=== PATIENT | male | born 1930 | race Caucasian/White ===

== ENCOUNTER 2016-12-30 19:37 | Inpatient (IN) | payer MEDICARE, MEDICAID ==
[2016-12-30] MEDS ORDERED: EPINEPHrine 1 MG/10 ML Abboject SYRINGE ONE (19:43)
[2016-12-30] MEDS ORDERED: Sodium Bicarb 50 MEQ/50 ML Abboject 8.4% SYRINGE ONE (20:00)
[2016-12-30] MEDS ORDERED: Atropine Sulfate 1 mg/10 ml Syringe ONE (20:00)
[2016-12-30] MEDS ORDERED: Norepinephrine 8 MG/0.9% NS 250 ML ONE (20:08)
[2016-12-30] MEDS ORDERED: Fentanyl 20 MCG/ML 250 ML ONE (20:53)
[2016-12-30] MEDS ORDERED: Vasopressin 40 UNIT, Admixture Fee 1 EACH in Sodium Chloride 0.9% 100 ML IV SCH (21:00)
[2016-12-30] MEDS ORDERED: Propofol 1,000 MG/100 ML VIAL IV ONE (21:09)
[2016-12-30 21:28] LABS: Oxyhemoglobin 97.9 % (94.0-97.0); Sodium 142 mmol/L (135-148)
[2016-12-30 21:34] LABS: Mechanical Tidal Volume 550 ml; Mode SIMV; Vent YES
[2016-12-30 21:46] LABS: Bilirubin Small (Negative); Blood, Urine Negative (Negative); Glucose, Urine (Dipstick) Negative (Negative); Ketone, Urine Negative (Negative); Nitrite Negative (Negative); Protein, Urine (Dipstick) 100 mg/dL (Neg-Trace)
[2016-12-30 21:48] LABS: Bacteria/HPF None Seen HPF (None Seen); Squamous Epithelial 0-3 HPF (0-3)
[2016-12-30 21:50] LABS: Hyaline Casts/LPF 0-3 HYALINE CAST LPF (0-3 Hyaline); Yeast-All Forms None Seen HPF (None Seen)
[2016-12-30] MEDS ORDERED: Ondansetron HCl/PF 4 MG/2 ML Vial IVP PRN (21:55)
--- NOTE | 2016-12-30 21:55 | PDOC.EVN ---
Event Note - Event Note Event Note: [id number] H&p dictated 1. SBO 2. Lactic acidosis 3. Acute respiratory failure 4. Cardiac arrest 5. Anemia + R/O GI bleed plan; see orders
[2016-12-30] MEDS ORDERED: Meropenem 2 GM in Admixture Fee 1 EACH IVPB SCH (22:00)
--- NOTE | 2016-12-30 22:11 | CON ---
DATE OF CONSULTATION: 12/30/2016 CHIEF COMPLAINT: Abdominal pain. HISTORY OF PRESENT ILLNESS: The patient is an 86-year-old male, who is a patient in a long term with a diagnosis of dementia, who began having abdominal pain over the last few days and was taken t o the emergency room in [place]. There he was hypotensive and which became exacerbated with treatmen t with pain medicine with narcotics. PAST MEDICAL HISTORY: Significant for hypertension, chronic constipation, benign prostatic hypertro phy, pressure ulcers, hypothyroidism. PAST SURGICAL HISTORY: Evidently he had a carpal tunnel surgery recently. MEDICATIONS: Include acetaminophen, guaifenesin, amlodipine, tramadol, Detrol, Imodium, metoprolol, levothyroxine, Flomax, Tums. ALLERGIES: No known drug allergies. SOCIAL HISTORY: Lives in a long term. We have tried 6 different phone numbers, cannot find any next of kin. No next of kin. Apparently, he has been DO NOT RESUSCITATE, DO NOT INTUBATE, that was reported prior to transfer here from [place]. PHYSICAL EXAMINATION: VITAL SIGNS: He is afebrile. His pulse is 80, his blood pressure is 60/20, on Levophed. GENERAL: I cannot get any response from him, he is totally unresponsive. HEENT: His pupils are 3 mm, he appears pale. LUNGS: Clear. HEART: Regular rate and rhythm. ABDOMEN: Very distended, tympanic. No palpable masses. EXTREMITIES: He has got an ulcer on his right foot, poor pulses. DIAGNOSTIC DATA: He had a CT scan done at [place]. I have talked to the radiologist here, there is no free air. There may be some early pneumatosis, but no free air at this time, but massively dilat ed small bowel. ASSESSMENT: Small-bowel obstruction with hypertension, poor surgical candidate. PLAN: NG suction, IV hydration, medical admission.
[2016-12-30] MEDS ORDERED: Sedation Protocol FS ONE (22:20)
[2016-12-30] MEDS ORDERED: CCU Electrolyte Replacement 1 EACH FS ONE (22:20)
[2016-12-30] MEDS ORDERED: Acetaminophen 650 MG in Premix Bag 1 BAG IVPB PRN (22:22)
[2016-12-30] MEDS ORDERED: Meropenem 1 GM in Sodium Chloride 0.9% 100 ML IVPB SCH (22:30)
--- NOTE | 2016-12-30 22:37 | RAD ---
EXAM: ONE VIEW CHEST 12/30/16 HISTORY: Bowel obstruction. Previous NG tube placement. COMPARISON: 12/30/16. FINDINGS: There is elevation of the left hemidiaphragm suggesting atelectasis. Superimposed air space disease cannot be excluded. Stable aeration of the right lung. There is no pneumothorax. Stable cardiac silh ouette. Interval removal of nasogastric tube. Multiple dilated loop of small bowel are identified. IMPRESSION: 1. Interval removal of nasogastric tube. 2. Elevation of the left hemidiaphragm and atelectasis. Superimposed pneumonia cannot be exclud ed. POS: [facility]
--- NOTE | 2016-12-30 22:38 | RAD ---
EXAM: ABDOMEN ONE VIEW 12/30/16 COMPARISON: None. CORRELATION: CT abdomen and pelvis 12/30/16. FINDINGS: Markedly distended loops of small bowel are redemonstrated. No obvious pneumoperitoneum on this supi ne projection. Right sided femoral central venous catheter is noted. IMPRESSION: Small bowel obstruction. POS: [facility]
[2016-12-30] MEDS ORDERED: DISCONTINUE PREVIOUS NARCOTIC PAIN MEDICATIONS AND BENZODIAZEPINES FS SCH (22:42)
[2016-12-30] MEDS ORDERED: Lorazepam 2 MG/ML VIAL SLOW IVP PRN (22:42)
[2016-12-30] MEDS ORDERED: Morphine Sulfate 2 MG/ML SYRINGE SLOW IVP PRN (22:42)
[2016-12-30] MEDS ORDERED: Potassium Phosphate 9 MMOL in Sodium Chloride 0.9% 100 ML IVPB PRN (22:44)
[2016-12-30] MEDS ORDERED: Potassium Chloride 20 MEQ TAB PO PRN (22:44)
[2016-12-30] MEDS ORDERED: Magnesium Oxide 400 MG TAB PO PRN ×2 (22:44)
[2016-12-30] MEDS ORDERED: CCU ELECTROLYTE REPLACEMENT PROTOCOL FS PRN (22:44)
[2016-12-30] MEDS ORDERED: Potassium Phosphate 12 MMOL in Sodium Chloride 0.9% 250 ML 250 ML IV PRN (22:44)
[2016-12-30] MEDS ORDERED: Potassium Chloride 40 MEQ in Sodium Chloride 0.9% 250 ML 250 ML IVPB PRN (22:44)
[2016-12-30] MEDS ORDERED: Potassium Phosphate 15 MMOL in Sodium Chloride 0.9% 250 ML 250 ML IV PRN (22:44)
--- NOTE | 2016-12-30 22:45 | RAD ---
EXAM: ONE VIEW CHEST 12/30/16 HISTORY: Intubation. COMPARISON: 12/30/16 at 7:31 p.m. FINDINGS: Portable supine chest: Endotracheal tube at the level of the clavicles. Nasogastric tube at the level distal thoracic esoph enmanuel. Persistent opacification of the left lung base with elevation of the left hemidiaphragm sugges ting atelectasis. Stable aeration of the right lung. No pneumothorax. IMPRESSION: Interval placement of endotracheal and nasogastric tube. Advancement of the nasogastric tube is yash mmended. Results of the study discussed with Dr. Recinos, 12/30/16 at 9:36 p.m. Code CR POS: [facility]
[2016-12-30 22:52] LABS: Hematocrit 23.9 % (42.0-52.0)
--- NOTE | 2016-12-30 23:05 | RAD ---
EXAM: ABDOMEN ONE VIEW 12/30/16 HISTORY: NG tube placement. FINDINGS: One view abdomen: Nasogastric tube is still at the level of the distal thoracic esophagus. Multiple distended loops of small bowel are noted. Contrast is identified in the left intra and extrarenal collecting system. IMPRESSION: 1. Small bowel obstruction. 2. Nasogastric tube as above. POS: [facility]
[2016-12-31] MEDS: Sodium Chloride 0.9% 1,000 ML IV SCH ×4 (00:09→21:02)
[2016-12-31] MEDS: metroNIDAZOLE 500 MG in Premix Bag 1 BAG IVPB SCH ×4 (00:09→22:49)
[2016-12-31] MEDS: Hydrocortisone Sod Succ/PF 100 mg/2 ml Vial IVP SCH ×5 (00:12→23:42)
[2016-12-31] MEDS: Pantoprazole 80 MG in Sodium Chloride 0.9% 100 ML IVP SCH ×3 (00:15→18:21)
--- NOTE | 2016-12-31 01:50 | CON ---
DATE OF CONSULTATION: 12/30/2016 CONSULTING PHYSICIAN: Yared Hernandez M.D., from the [facility]. REASON FOR CONSULTATION: Critical care management. HISTORY OF PRESENT ILLNESS: The patient is an 86-year-old male who apparently lives in a nursing [facility]. He presented to the [facility] ER earlier today with vomiting and abdominal pain. He li ves in a intermediate, so the history is somewhat sketchy. From what I understand, he was given Dil audid and fentanyl for his abdominal pain and subsequently required reversal with Narcan. He develo ped some hypotension. He was found to have small-bowel obstruction on CT scan. Initially, it was s uspected that he might have a perforated viscous, but it seems to have been ruled out by Radiology a nd General Surgery. In any event, he was transported over here and the patient decompensated in ter ms of hypotension and eventually had a short cardiopulmonary arrest. He required endotracheal intub ation and was placed on vasopressors. PAST MEDICAL HISTORY: 1. Depression. 2. Chronic atrial fibrillation. 3. Lower extremity venous insufficiency. 4. Osteoarthritis. 5. Benign prostatic hypertrophy. 6. Sick sinus syndrome. 7. Colon polypectomy. 8. Anemia. 9. Hypothyroidism. 10. Dementia. PAST SURGICAL HISTORY: Colonoscopies and EGDs. MEDICATIONS PRIOR TO ADMISSION: Amlodipine 5 mg daily, tramadol 50 mg every 4 hours as needed, Detr ol 2 mg 2 times daily, Imodium 2 mg p.r.n., multivitamin 1 daily, metoprolol 25 mg once daily, levot hyroxine 75 mcg daily, Flomax 0.4 mg 2 tablets once daily, Tums 200 mg every 6 hours as needed, guai fenesin 2 teaspoons every 6 hours as needed and acetaminophen 325 mg every 4 hours as needed. ALLERGIES: ALLOPURINOL, NAPROSYN, PENICILLIN, PENTOXIFYLLINE and SULFA. SOCIAL HISTORY: Lives in a intermediate. Formerly drank 2-4 beers 2-4 days per week. Unclear on h is smoking history at the time of this dictation. FAMILY MEDICAL HISTORY: Father of an IN. Mother of old age. Has a history of breast can cer in the family and also diabetes mellitus. REVIEW OF SYSTEMS: Unobtainable as the patient is intubated on mechanical ventilation. PHYSICAL EXAMINATION: VITAL SIGNS: Temperature is 93.7, pulse 114, blood pressure 144/54, O2 sat 100% and respiratory rat e 25. At the time of this dictation, he was on Levophed at 15 mcg/minute and vasopressin 0.04 units /minute. HEENT: His pupils sluggishly react. Sclerae are anicteric. Oropharynx, endotracheal tube and orog astric tube in place. NECK: Without adenopathy. LUNGS: He has profound external jugular vein secondary to the severe muscle atrophy. No thyromegal y. CARDIAC: S1 and S2, irregularly irregular. No murmur. LUNGS: Clear without wheezing or rhonchi. ABDOMEN: Distended and tympanic with hypoactive bowel sounds. EXTREMITIES: Without clubbing or cyanosis. He has stasis ulcer on his left heel. LABORATORY DATA: White blood cell count 5.8, hemoglobin 9, hematocrit 28.3 and platelet count 260. PH of 7.19, pCO2 of 48, pO2 of 292 and that was on SIMV rate 16, tidal volume 550, PEEP 5, pressure support 10 and FiO2 100%. Sodium 140, potassium 4.3, chloride 102, CO2 of 24, BUN 85, creatinine 1 .2, glucose 166, lactate 5.3 and calcium 8.7. Cardiac enzymes are pending. Urinalysis demonstrated 4-6 white blood cells per high power field. He has proteinuria. IMAGING DATA: Chest x-ray demonstrates some atelectasis at the left base. He has an endotracheal t ube in. There is now an orogastric tube in place. KUB shows profound bowel loops with distention. ASSESSMENT: 1. Small-bowel obstruction. 2. Cardiopulmonary decompensation secondary to narcotic medication administration with subsequent h ypotension, which is now corrected. 3. History of dementia. 4. History of hypothyroidism. 5. History of hypertension. 6. Advanced age. RECOMMENDATIONS: 1. I would recommend supporting the patient with mechanical ventilation. Wean off vasopressor as t olerated. 2. Empiric antibiotics. 3. Pantoprazole for GI prophylaxis. 4. Hydration with IV fluids. 5. Check an echocardiogram in the morning. 6. Get in touch with family and code status is his prognosis is very poor.
[2016-12-31] MEDS: Propofol 1,000 MG/100 ML VIAL IV PRN ×2 (04:50→17:37)
[2016-12-31] MEDS: Levothyroxine Sodium 100 MCG VIAL IVP SCH (05:46)
[2016-12-31 06:24] LABS: #Lymphocytes 0.5 thou/uL (1.20-3.40); #Monocytes 0.5 thou/uL (0.11-0.59); #Neutrophils 2.9 thou/uL (1.40-6.50); %Eosinophils 0.2 % (0.0-10.0); %Lymphocytes 13.3 % (21.0-51.0); %Monocytes 12.5 % (0.0-10.0); Hematocrit 22.7 % (42.0-52.0); Mean Platelet Volume 7.4 fL (7.4-10.4); Red Blood Cell (RBC) Count 2.29 mill/uL (4.70-6.10)
[2016-12-31 06:43] LABS: Anion Gap 18 mmol/L (10-20); BUN (Urea Nitrogen) 26 mg/dL (8.4-25.7); BUN/Creatinine Ratio 21.31; Calc. Creatinine Clearance 48 mL/min (70-130); Calcium 7.7 mg/dL (7.8-10.44); Carbon Dioxide 21 mmol/L (23-31); Chloride 107 mmol/L (98-107); Estimated GFR-MDRD 56; Phosphorus 4.6 mg/dL (2.3-4.7)
[2016-12-31 07:09] LABS: Oxyhemoglobin 97.1 % (94.0-97.0); Sodium 140 mmol/L (135-148)
[2016-12-31 07:10] LABS: Mechanical Tidal Volume 550 ml; Modified Allen's Test POSITIVE; Pressure Support 10 cmH2O; Vent YES
--- NOTE | 2016-12-31 08:00 | HP ---
DATE OF ADMISSION: 12/30/2016 CHIEF COMPLAINT: Abdominal pain. HISTORY OF PRESENT ILLNESS: The patient is 86 years old male who [place], initially went to outside ER because of abdominal pain. In the outside ER, the patient was complaining of abdominal pain. The patient had x- ray done, which showed some possible perforated viscus. The patient was given Dilaudid in the outside ER, following Dilaudid patient became apneic, so patient was given Narcan and patient was improved, so patient was given fentanyl and transferred here. Upon our ER arrival, the patient was lethargic. The patient had repeat x-ray done, which showed small-bowel obstruction, but patient was hypotensive, so patient was started on vasopressors. The patient was seen by General Surgery in the ER, recommended no surgical intervention at this time. While in the ER, the patient became hypotensive and bradycardic and lost pulse, so patient had CPR done for 2 minutes and then restarted dose of epinephrine also. Following that the patient's heart rate improved, the patient was placed on 2 pressors. The patient was intubated during cardiac arrest and patient is currently on the ventilatory support, so no history available from the patient. The patient did had an NG tube placed and patient had black vomit following that NG tube placement. The patient is currently on the ventilator support. PAST MEDICAL HISTORY: Per records, positive for atrial fibrillation, pulmonary hypertension, BPH, depression, and venous insufficiency. PAST SURGICAL HISTORY: None available as the patient is currently on the ventilator support. SOCIAL HISTORY: No smoking, no alcohol, no drugs. FAMILY HISTORY: No family members available at this time. MEDICATIONS: Reviewed. REVIEW OF SYSTEMS: None unavailable as the patient is currently on the ventilator support. PHYSICAL EXAMINATION: CONSTITUTIONAL/VITAL SIGNS: At the time of H and P performed, blood pressure is 102/58, pulse 110, respiratory rate on vent support in the 20s, pulse ox 100 % on vent support. GENERAL APPEARANCE: This patient is sedated and intubated. Anterior nares patent. Oral cavity: Poor dentition. Positive for ET tube. NECK: Supple, no JVD. CARDIOVASCULAR SYSTEM: S1, S2 present, tachycardic. No murmurs, no rubs, no gallops. RESPIRATORY SYSTEM: Diminished breath sounds present bilaterally. Positive for rhonchi. Positive for crackles. GASTROINTESTINAL: Abdomen distended, hypoactive bowel sounds. No guarding, no organomegaly. MUSCULOSKELETAL: No edema. CRANIAL NERVE SYSTEM: Sedated and intubated and not following any commands. PSYCHIATRIC: Mood calm. LABORATORY DATA: At the time of H and P performed, white count 5.8, hemoglobin 9, platelet count 260. Lactic acid 5.3. Sodium 140, potassium 4.3, chloride 102, CO2 of 24, BUN 20, creatinine 1.19. BNP 134. Serum total protein 6.8, albumin 3.4. ASSESSMENT AND PLAN: The patient is 86 years old male. 1. Small-bowel obstruction. The patient was seen by Surgery. We will go ahead and management per Surgery. Need to keep patient n.p.o., start the patient on broad spectrum antibiotics. Plan to admit the patient to the ICU for close monitoring. 2. Acute respiratory failure plus status post cardiac arrest. Plan to continue vent support. Plan to check ABG. Plan to consult Pulmonary Critical Care to manage the patient. Plan to monitor the patient closely. Plan to continue vasopressors. Plan to check 2D echo to evaluate left ventricular function and we will consult Cardiology also to evaluate the patient. 3. Lactic acidosis might be due to hypotension or might be due to sepsis also. We will monitor CBC and lactate levels. Continue broad spectrum antibiotics. 4. Anemia. Monitor hemoglobin closely. No need for transfusion. We will transfuse if needed. 5. Hypotension. Continue vasopressor, we will try to keep map greater than 60. We will start patient on IV fluids also. 6. Rule out gastrointestinal bleed. The patient's NG tube showed significant black vomit seen, so we will start patient on Protonix drip also. We will monitor the patient closely. We will do H and H q.6 hours. The case was discussed in detail with the patient and ED physician. ED physician agreed to notify the ICU attending now. We will monitor the patient closely. d/w pt great grand nephew at bedside and updated patient critical condition MTDD
--- NOTE | 2016-12-31 08:08 | PRG ---
DATE OF SERVICE: 12/31/2016 Thirty-five minutes critical care time. SUBJECTIVE: Mr. Esquivel remains intubated and on mechanical ventilation. He was weaned off vasopr essors last night. He withdraws to pain, but does not follow any commands. He is currently on a li ght dose of propofol. PHYSICAL EXAMINATION: VITAL SIGNS: Temperature 96.9, pulse 96, blood pressure 106/64. A 24-hour intake 893, output 235. HEENT: Severe bitemporal wasting. NECK: Prominent external jugular veins. LUNGS: Clear but distant breath sounds. CARDIOVASCULAR: S1 and S2, irregularly irregular. ABDOMEN: Distended and tympanic. EXTREMITIES: Severe muscle wasting. LABORATORY DATA: White blood cell count 4, hemoglobin 7.3, hematocrit 22.7, platelet count 188, pH 7.53, pCO2 of 22, PO2 of 107 on SIMV rate 24, tidal volume 550, PEEP 5, pressure support 10, FiO2 40 %. Sodium 142, potassium 4.4, chloride 107, CO2 21, BUN 26, creatinine 1.2, glucose 131. Lactate 6 .7. ASSESSMENT: 1. Acute respiratory failure after administration of Dilaudid by outlying ER. 2. Small-bowel obstruction. 3. Some type of stricture at the esophageal or gastric junction which is preventing NG tube from be ing passed. 4. Dementia. 5. History of hypothyroidism. 6. History of hypertension. 7. History of chronic atrial fibrillation. PLAN: 1. He is not weanable yet secondary to his mental status. I would be very pessimistic of his recov belkys. 2. Continue antibiotics. 3. Check CT head to rule out stroke. 4. Adjust ventilator parameters. 5. Continue antibiotics.
[2016-12-31] MEDS: Meropenem 1 GM in Sodium Chloride 0.9% 100 ML IVPB SCH ×3 (08:30→23:42)
--- NOTE | 2016-12-31 12:23 | PDOC.PN ---
- Subjective Encounter Start Date: 12/31/16 Encounter Start Time: 12:21 Subjective: remains intubated and sedated - Objective MAR Reviewed: Yes Vital Signs & Weight: Vital Signs (12 hours) Temp Pulse Resp BP 12/31/16 10:52 108 H 106/67 12/31/16 10:00 97.5 F L 12/31/16 07:00 97.5 F L 12/31/16 06:31 105 H 111/67 12/31/16 06:00 24 H 12/31/16 04:00 96.9 F L 24 H 12/31/16 02:00 97.5 F L 24 H Weight Admit Weight 168 lb 14.4 oz Weight 169 lb 8.56 oz Most Recent Monitor Data Heart Rate from ECG 115 NIBP 112/59 NIBP BP-Mean 91 Respiration from ECG 24 SpO2 100 I&O: 12/30/16 12/31/16 01/01/17 06:59 06:59 06:59 Intake Total 943.0 Output Total 245 40 Balance 698.0 -40 Result Diagrams: 12/31/16 06:15 12/31/16 06:15 Additional Labs: Microbiology 12/30/16 22:30 Central Line - Right Common Femoral Vein Blood Culture - Preliminary Specimen has been received and culture in progress. No Growth to date. 12/30/16 19:55 Venous blood - Right Arm Blood Culture - Preliminary Specimen has been received and culture in progress. No Growth to date. Laboratory Tests 12/31/16 12/31/16 00:06 06:15 Lactic Acid 7.9 H* 6.7 H* Phys Exam - Physical Examination Constitutional: NAD cachectic w severe muscle wasting HEENT: PERRLA, sclera anicteric, oral pharynx no lesions dry mucosa Neck: no JVD Respiratory: no wheezing, no rales, no rhonchi Cardiovascular: RRR, no significant murmur Gastrointestinal: soft, non-tender, no distention, positive bowel sounds Musculoskeletal: no edema, pulses present b/l leg w erythema,brusing,warmth,stress ulcers sedated Deviation from normal: sedated Dx/Plan (1) Acute respiratory failure Code(s): J96.00 - ACUTE RESPIRATORY FAILURE, UNSP W HYPOXIA OR HYPERCAPNIA Status: Acute (2) Cardiac arrest Code(s): I46.9 - CARDIAC ARREST, CAUSE UNSPECIFIED Status: Acute (3) SBO (small bowel obstruction) Code(s): K56.69 - OTHER INTESTINAL OBSTRUCTION Status: Acute (4) Lactic acid acidosis Code(s): E87.2 - ACIDOSIS Status: Acute Comment: likley due to Hypoperfusion during CPR.Sepsis also can not be ruled out (5) Shock Code(s): R57.9 - SHOCK, UNSPECIFIED Status: Acute Comment: Septic Vs cardiogenic. On IV steroids and Pressor support (6) Sepsis Code(s): A41.9 - SEPSIS, UNSPECIFIED ORGANISM Status: Suspected (7) Anemia Code(s): D64.9 - ANEMIA, UNSPECIFIED Status: Chronic Qualifiers: Anemia type: unspecified type Qualified Code(s): D64.9 - Anemia, unspecified (8) Chronic a-fib Code(s): I48.2 - CHRONIC ATRIAL FIBRILLATION Status: Chronic (9) Malnutrition Code(s): E46 - UNSPECIFIED PROTEIN-CALORIE MALNUTRITION Status: Chronic Qualifiers: Malnutrition type: unspecified type Qualified Code(s): E46 - Unspecified protein-calorie malnutrition - Plan tong catheter, continue antibiotics, social media job titles, incentive spirometry, DVT proph w/SCDs ? bowel perforation.Inability to pass NGT.discussed w GI.not a candidate -: will consult PCT for hospice care .no immediate next of kin -: cont empiric ABx.IVf for now,PCCM following -: Vent support w sedation.not weanable. -: poor prognosis.am labs * . Review of Systems - Review of Systems Other: unobtainable due to obtunded,intubated and sedated state - Medications/Allergies Allergies/Adverse Reactions: Allergies Allergy/AdvReac Type Severity Reaction Status Date / Time allopurinol Allergy Verified 10/20/16 09:47 naproxen Allergy Verified 10/20/16 09:47 Penicillins Allergy Verified 10/20/16 09:47 pentoxifylline [From [place]al] Allergy Verified 10/20/16 09:47 Sulfa (Sulfonamide Allergy Verified 10/20/16 09:47 Antibiotics) Medications: Current Medications Hydrocortisone Sodium Succinate (Solu-Cortef) 50 mg IVP Q6HR JORGE L Stop: 01/06/17 18:01 Last Admin: 12/31/16 11:50 Dose: 50 mg Vasopressin 40 unit/Miscellaneous Medication 1 each/ Sodium Chloride 102 mls @ 0 mls/hr IV INF JORGE L; As Directed PRN Reason: Protocol Sodium Chloride (Normal Saline 0.9%) 1,000 mls @ 100 mls/hr IV .Q10H JORGE L Last Admin: 12/31/16 08:33 Dose: 1,000 mls Pantoprazole Sodium 80 mg/ (Sodium Chloride) 100 mls @ 10 mls/hr IVP INF JORGE L Last Admin: 12/31/16 08:56 Dose: 100 mls Metronidazole 500 mg/ Device 100 mls @ 100 mls/hr IVPB 0700,1500,2300 JORGE L Last Admin: 12/31/16 08:29 Dose: 100 mls Acetaminophen 650 mg/ Device 65 mls @ 400 mls/hr IVPB Q6H PRN PRN Reason: Fever > 101 Stop: 12/31/16 22:23 Ascorbic Acid 1,500 mg/ Sodium (Chloride) 53 mls @ 100 mls/hr IVPB Q6HR JORGE L Stop: 01/03/17 18:32 Last Admin: 12/31/16 11:53 Dose: 53 mls Norepinephrine Bitartrate (Levophed) 250 mls @ 0 mls/hr IVPB INF JORGE L; Titrate PRN Reason: Protocol Thiamine HCl 200 mg/ Sodium (Chloride) 52 mls @ 100 mls/hr IVPB Q12HR [facility] Stop: 01/03/17 21:32 Last Admin: 12/31/16 08:29 Dose: 52 mls Fentanyl (Fentanyl Cadd) 250 mls @ 0 mls/hr IVPB INF JORGE L; Titrate PRN Reason: Protocol Stop: 01/29/17 22:42 Fentanyl Citrate (Fentanyl Bolus) 250 mls @ 0 mls/hr IVPB PRN PRN; As Directed PRN Reason: VENTILATION SEDATION PROTOCOL Stop: 01/29/17 22:42 Potassium Chloride 40 meq/ (Sodium Chloride) 270 mls @ 135 mls/hr IVPB ASDIR PRN PRN Reason: FOR SERUM K+ 2.5 - 3.5 Potassium Chloride 40 meq/ (Device) 100 mls @ 50 mls/hr IVPB ASDIR PRN PRN Reason: FOR SERUM K+ 2.5 - 3.5 Magnesium Sulfate 1 gm/ Sodium (Chloride) 102 mls @ 102 mls/hr IV PRN PRN PRN Reason: MAG LEVEL 1.4 - 2.0 Magnesium Sulfate 2 gm/ Device 100 mls @ 100 mls/hr IVPB ASDIR PRN PRN Reason: MAGNESIUM < 1.4 Potassium Phosphate 9 mmol/ (Sodium Chloride) 103 mls @ 25.75 mls/hr IVPB ASDIR PRN PRN Reason: Phosphate 1.0-1.8 Potassium Phosphate 12 mmol/ (Sodium Chloride) 254 mls @ 63.5 mls/hr IV ASDIR PRN PRN Reason: Serum phosphate 0.5-0.9 Potassium Phosphate 15 mmol/ (Sodium Chloride) 255 mls @ 63.75 mls/hr IV ASDIR PRN PRN Reason: Serum Phos < 0.5 Meropenem 1 gm/ Sodium (Chloride) 100 mls @ 200 mls/hr IVPB 0800,1600,2359 [facility] Last Admin: 12/31/16 08:30 Dose: 100 mls Levothyroxine Sodium (Synthroid) 37.5 mcg IVP 0600 [facility] Last Admin: 12/31/16 05:46 Dose: Not Given Lorazepam (Ativan) 2 mg SLOW IVP Q2H PRN PRN Reason: Anxiety to achieve [place] 2-3 Stop: 01/29/17 22:42 Magnesium Oxide (Magnesium Oxide) 400 mg PO BIDPRN PRN PRN Reason: FOR SERUM MAG 1.4 - 2.0 Magnesium Oxide (Magnesium Oxide) 800 mg PO PRN PRN PRN Reason: FOR SERUM MAG < 1.4 Miscellaneous Medication (Phos-Nak) 1 pkt PO TIDPRN PRN PRN Reason: FOR PHOS LEVEL 1.0 - 1.8 Miscellaneous Medication (Phos-Nak) 2 pkt PO TIDPRN PRN PRN Reason: FOR PHOS LEVEL 0.5 - 1.0 Morphine Sulfate (Morphine Sulfate) 2 mg SLOW IVP Q2H PRN PRN Reason: PAIN TO ACHIEVE DAUGHERTY OF 2-3 Stop: 01/29/17 22:42 Discontinue Previous Narcotic Pain Medications And Benzodiazepines 1 each FS .ONE [facility] Stop: 01/29/17 22:42 Ccu Electrolyte (Replacement Protocol) 0 each FS PRN PRN PRN Reason: FOR ELECTROLYTE REPLACEMENT Ondansetron HCl (Zofran) 4 mg IVP Q6H PRN PRN Reason: Nausea/Vomiting Potassium Chloride (K-Dur) 40 meq PO ASDIR PRN PRN Reason: FOR SERUM K+ 2.5 - 3.5 Potassium Chloride (Klor-Con) 40 meq PER TUBE ASDIR PRN PRN Reason: FOR SERUM K+ 2.5-3.5 Propofol (Diprivan) 1,000 mg IV INF PRN; Protocol PRN Reason: TO ACHIEVE DAUGHERTY SCORE 2-3 Stop: 01/29/17 22:42 Last Admin: 12/31/16 04:50 Dose: 1,000 mg
--- NOTE | 2016-12-31 14:05 | CON ---
DATE OF CONSULTATION: 12/31/2016 HISTORY OF PRESENT ILLNESS: The patient is an 86-year-old demented custodial patient who was tra nsferred from a hospital in [facility]. He came in with abdominal pain and appeared to have a sm all-bowel obstruction. He was given some Dilaudid and became apneic. He was given Narcan and respo nded. He was noted to be hypotensive, he was started on vasopressors. General Surgery was saw him and at that time they said he was not a surgical candidate. He became bradycardiac and CPR was perf ormed and the patient was intubated. Patient had an NG place, but it was difficult for the NG to be passed beyond the thoracic esophagus. He adds nothing to history of present illness. PAST MEDICAL HISTORY: Includes atrial fibrillation, pulmonary hypertension, BPH, depression, venous insufficiency, dementia. PAST SURGICAL HISTORY: Unknown. SOCIAL HISTORY, FAMILY HISTORY, AND REVIEW OF SYSTEMS: Unobtainable. HOME MEDICATIONS: Include tramadol 50 mg p.o. q.4 hours p.r.n., Detrol 2 mg p.o. b.i.d., tamsulosin 0.4 mg p.o. at bedtime, multivitamin 1 p.o. q. day, Toprol-XL 25 mg p.o.q. day, loperamide 2 mg p.o . as directed p.r.n., levothyroxine 75 mcg p.o. q. day, amlodipine 5 mg p.o. q. day. ALLERGIES: Includes ALLOPURINOL, NAPROXEN, PENICILLIN, TRENTAL, and SULFA. PHYSICAL EXAMINATION: GENERAL: Shows ill-appearing, cachectic white man on the ventilator. VITAL SIGNS: Pulse is 113, respiratory rate 15, blood pressure 108/62. HEENT: Significant for an orotracheal tube in place. He is edentulous. NECK: Supple. CHEST: Clear. CARDIOVASCULAR: Regular rate and rhythm. ABDOMEN: Distended, tight, tympanitic diffusely. Bowel sounds are absent. RECTAL: Deferred. EXTREMITIES: Normal. LABORATORY DATA AND X-RAY FINDINGS: Shows a white blood cell count of 4.0, hemoglobin 7.3, hematocr it 22.7, MCV of 99.3. Chemistries significant for BUN 26, glucose 131. Lactic acid 67, calcium 7.7 , albumin 29. Abdominal x-rays from yesterday show a small-bowel obstruction. ASSESSMENT: 1. Small-bowel obstruction - the patient is not a surgical candidate. According to the CT report david Milton, the patient had pneumatosis in his bowel wall. Considering, he is not a surgical candid ate, is demented in the custodial. I think any further intervention would be not in the patient' s best interest. 2. Dementia. 3. Atrial fibrillation. RECOMMENDATION: Hospice care.
[2017-01-01] MEDS: Norepinephrine 8 MG/0.9% NS 250 ML IVPB SCH ×3 (02:01→17:51)
[2017-01-01 05:07] LABS: Band 44 % (5-11); Dohle Bodies SLIGHT; Hematocrit 18.5 % (42.0-52.0); Hypochromia SLIGHT = 6-15 cells (100X) (0-5/hpf); Macrocytosis SLIGHT = 6-15 cells (100X) (0-5/hpf); Mean Platelet Volume 7.9 fL (7.4-10.4); Metamyelocyte 2 % (0-0); Neutrophil 42 % (42-75); Red Blood Cell (RBC) Count 1.85 mill/uL (4.70-6.10); White Blood Cell (WBC) Count 5.5 thou/uL (4.8-10.8)
[2017-01-01] MEDS: Hydrocortisone Sod Succ/PF 100 mg/2 ml Vial IVP SCH ×4 (05:27→23:34)
[2017-01-01] MEDS: Levothyroxine Sodium 100 MCG VIAL IVP SCH (05:28)
[2017-01-01 06:00] LABS: Anion Gap 19 mmol/L (10-20); BUN (Urea Nitrogen) 48 mg/dL (8.4-25.7); Calc. Creatinine Clearance 27 mL/min (70-130); Calcium 7.3 mg/dL (7.8-10.44); Carbon Dioxide 19 mmol/L (23-31); Chloride 109 mmol/L (98-107); Estimated GFR-MDRD 27
[2017-01-01] MEDS: metroNIDAZOLE 500 MG in Premix Bag 1 BAG IVPB SCH ×3 (06:36→23:33)
[2017-01-01 07:27] LABS: Oxyhemoglobin 95.6 % (94.0-97.0); Sodium 140 mmol/L (135-148)
[2017-01-01 07:28] LABS: Mechanical Tidal Volume 500 ml; Mode SIMV.PSV; Modified Allen's Test NOT DONE; Pressure Support 10 cmH2O; Vent YES
[2017-01-01] MEDS: Meropenem 1 GM in Sodium Chloride 0.9% 100 ML IVPB SCH ×3 (08:29→23:33)
[2017-01-01] MEDS: Propofol 1,000 MG/100 ML VIAL IV PRN ×2 (08:34→23:34)
--- NOTE | 2017-01-01 10:10 | RAD ---
RADIOGRAPH CHEST 1 VIEW: Date: 01/01/17 Time: 0517 HOURS HISTORY: 86-year-old male in respiratory failure. COMPARISON: 12/30/16 at 2049 hours. FINDINGS: Whereas the patient was previously turned to the left, the patient is now turned to the right, and t his makes comparison somewhat difficult. Left hemidiaphragm remains significantly elevated. Air spac e opacity causing silhouetting of the left hemidiaphragm appears worse. It is uncertain how much of this is due to positional differences and how much is due to actual change. No pulmonary edema. Endo tracheal tube remains. No pneumothorax identified, but this is a supine image. The nasogastric tube is no longer visualized. IMPRESSION: 1. Interval removal of NG tube. 2. Elevated left hemidiaphragm and air space density at the left lung base, which may or may not méndez ve changed since yesterday. MINO [] POS: [facility]
--- NOTE | 2017-01-01 10:58 | PDOC.PN ---
- Subjective Encounter Start Date: 01/01/17 Encounter Start Time: 09:05 -: non-verbal, old records requested/rev Pt seen and examined earlier on rounds. Chart reviewed in its entirety. This is my first visit with this patient. Admitted yesterday S/P cardiac arrest. now in multisystem failure, shock requiring 2mcg of levophed and in acute resp failure orally intubated and on the vent. On propofol at 2mcg, no responsive,not opening eyes to stimuli at present No acute events recorded ROS not obtainable - Objective Resuscitation Status: Resuscitation Status DNR:Do Not Resuscitate MAR Reviewed: Yes Vital Signs & Weight: Vital Signs (12 hours) Temp Pulse Resp BP 01/01/17 10:16 115 H 100/58 L 01/01/17 09:45 97.9 F 01/01/17 09:30 97.9 F 01/01/17 06:59 117 H 100/53 L 01/01/17 06:00 15 01/01/17 04:00 98.7 F 15 01/01/17 02:15 118 H 01/01/17 02:00 15 01/01/17 00:00 98.5 F 15 Weight Admit Weight 168 lb 14.4 oz Weight 178 lb 5.663 oz Most Recent Monitor Data Heart Rate from ECG 123 NIBP 104/56 NIBP BP-Mean 62 Respiration from ECG 15 SpO2 98 I&O: 12/31/16 01/01/17 01/02/17 06:59 06:59 06:59 Intake Total 943.0 3252.5 0 Output Total 245 114 Balance 698.0 3138.5 0 Result Diagrams: 01/01/17 04:00 01/01/17 04:00 Radiology Reviewed by me: Yes EKG Reviewed by me: Yes Phys Exam - Physical Examination comfortable, on minimal sedation, not responsive HEENT: moist MMs, sclera anicteric, oral pharynx no lesions pupils minimally reactive Neck: no nodes, no JVD, supple, full ROM Respiratory: no wheezing, no rales, no rhonchi, clear to auscultation bilateral Cardiovascular: no significant murmur, no rub regular, tachycardic 120s Gastrointestinal: soft, no distention, positive bowel sounds Musculoskeletal: no edema not testable Lymphatic: no nodes Skin: no rash, normal turgor Dx/Plan (1) Acute respiratory failure Code(s): J96.00 - ACUTE RESPIRATORY FAILURE, UNSP W HYPOXIA OR HYPERCAPNIA Status: Acute (2) Cardiac arrest Code(s): I46.9 - CARDIAC ARREST, CAUSE UNSPECIFIED Status: Acute (3) Lactic acid acidosis Code(s): E87.2 - ACIDOSIS Status: Acute Comment: likley due to Hypoperfusion during CPR.Sepsis also can not be ruled out (4) SBO (small bowel obstruction) Code(s): K56.69 - OTHER INTESTINAL OBSTRUCTION Status: Acute (5) Shock Code(s): R57.9 - SHOCK, UNSPECIFIED Status: Acute Comment: Septic Vs cardiogenic. On IV steroids and Pressor support (6) Chronic a-fib Code(s): I48.2 - CHRONIC ATRIAL FIBRILLATION Status: Chronic - Plan * . CCM, followup on pulmonary recommendations. Seems jose futile care, pt has no NOK identified. social group worker/palliative care referrals made, will follow up on results
[2017-01-01] MEDS: Sodium Chloride 0.9% 1,000 ML IV SCH ×2 (12:00→23:34)
--- NOTE | 2017-01-01 12:49 | OP ---
PREOPERATIVE DIAGNOSES: 1. Small-bowel obstruction. 2. Unable to pass NG tube, rule out esophageal obstruction. PROCEDURE: After informed consent was obtained, the patient was placed in supine position. Anesthe miryam administered per the Anesthesia Department. Forward-viewing endoscope was inserted into the eso phagus under direct visualization with ease and passed to the small bowel with ease. The duodenum s howed some free fluid in the duodenum and this was suctioned. The pylorus, antrum, body, fundus, an d cardia were normal except for some large amount of gastric contents. This was suctioned free. A nasogastric tube was placed into the stomach and this was confirmed with direct endoscopic visualiza tion. ASSESSMENT: 1. Successful NG tube placement. 2. Small-bowel obstruction. RECOMMENDATION: Begin NG suction.
--- NOTE | 2017-01-01 14:00 | PRG ---
DATE OF SERVICE: 01/01/2017 Thirty-five minutes critical care time including time spent with the patient's daughter in [facility]. The patient now awakens. He can follow some commands. PHYSICAL EXAMINATION: VITAL SIGNS: On exam, temperature is 98.7, pulse 122, blood pressure 97/57. He is requiring Levoph ed at 9 mcg per minute. He is on normal saline 100 mL per hour. His 24-hour intake was 3252 and ou tput about 114. HEENT: Bitemporal wasting. Orotracheal tube in place. NECK: No JVD. Severe muscle wasting. LUNGS: Clear anteriorly. CARDIOVASCULAR: S1, S2, slightly tachycardic. ABDOMEN: Distended, tympanic. He has had no bowel movements. EXTREMITIES: Muscle wasting. LABORATORY DATA: PH 7.30, pCO2 of 31, pO2 of 84 on SIMV rate 15, tidal volume 500, PEEP 5, pressure support 10, FiO2 30%. White blood cell count 5.5, hemoglobin 6, hematocrit 18.5, platelet count 21 7. Sodium 141, potassium 5.7, chloride 109, CO2 19, BUN 48, creatinine 2.3, glucose 99, calcium 7.3 . ASSESSMENT: 1. Acute respiratory failure, requiring mechanical ventilation. 2. Status post cardiac arrest. 3. Acute renal dysfunction. 4. 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 5. Hyperkalemia. PLAN: 1. Try to increase his blood pressure with Levophed to see if this will stimulate urine output. 2. Transfuse 2 units PRBCs for hemoglobin of 6. 3. Continue antibiotics. 4. Kayexalate enema for the potassium. 5. I sat and spoke with the patient's daughter for quite some time. I told her that the prognosis was quite poor. Since he has improved overnight, we are going to give him a couple more days and se e how he does. In the meantime, daughter needs to go back home to [facility] to take care of s ome issues and then she will return. We will not plan on any sort of withdrawal of care until she c omes back.
[2017-01-01] MEDS: Fentanyl 20 MCG/ML 250 ML IVPB SCH (18:05)
[2017-01-02] MEDS: Norepinephrine 8 MG/0.9% NS 250 ML IVPB SCH ×3 (01:25→19:13)
[2017-01-02] MEDS: Hydrocortisone Sod Succ/PF 100 mg/2 ml Vial IVP SCH ×3 (06:17→18:18)
[2017-01-02] MEDS: metroNIDAZOLE 500 MG in Premix Bag 1 BAG IVPB SCH ×2 (06:19→16:46)
[2017-01-02] MEDS: Levothyroxine Sodium 100 MCG VIAL IVP SCH (06:21)
[2017-01-02 07:14] LABS: Mean Platelet Volume 8.1 fL (7.4-10.4); Red Blood Cell (RBC) Count 2.72 mill/uL (4.70-6.10); White Blood Cell (WBC) Count 10.9 thou/uL (4.8-10.8)
[2017-01-02 07:24] LABS: Anion Gap 18 mmol/L (10-20); BUN (Urea Nitrogen) 60 mg/dL (8.4-25.7); Calc. Creatinine Clearance 27 mL/min (70-130); Calcium 7.3 mg/dL (7.8-10.44); Carbon Dioxide 18 mmol/L (23-31); Chloride 113 mmol/L (98-107); Estimated GFR-MDRD 27
[2017-01-02 07:38] LABS: Band 46 % (5-11); Neutrophil 45 % (42-75); Toxic Granulation SLIGHT; Vacuoles SLIGHT
--- NOTE | 2017-01-02 08:41 | PRG ---
DATE OF SERVICE: 01/02/2017 PULMONARY AND CRITICAL CARE PROGRESS NOTE Thirty-five minutes of critical care time. SUBJECTIVE: The patient remains intubated on mechanical ventilation. He did begin making more urin e last night with an increase in his systolic blood pressure by the Levophed. PHYSICAL EXAMINATION: VITAL SIGNS: Temperature is 98.6, pulse 120, blood pressure 124/69, 24-hour intake 3562 and output 2260, 1560 of that through urine. HEENT: Bitemporal wasting present. Oropharyngeal tube in place. He also has a nasogastric tube. NECK: Severe muscle wasting. CARDIAC: S1 and S2, tachycardic. LUNGS: Fairly clear anteriorly. ABDOMEN: Softer, still tympanic. Bowel sounds hypoactive. EXTREMITIES: No edema. LABORATORY DATA AND X-RAY FINDINGS: Sodium 144, potassium 5.0, chloride 113, CO2 18, BUN 60, creati nine 2.3, glucose 106, white blood cell count 10.9, hematocrit 26, platelet count 173. Chest x-ray shows no acute changes. Endotracheal tube and nasogastric tube are in good positions. ASSESSMENT: 1. Acute respiratory failure, requiring mechanical ventilation. 2. Status post cardiopulmonary arrest. 3. Some type of ileus versus small-bowel obstruction. PLAN: 1. Continue supportive care with mechanical ventilation. 2. Continue Levophed. 3. Need to move his central line from his groin to his neck. 4. Continue cortisone, IV levothyroxine, vitamin C, and thiamine. 5. Consider TPN. GI does not feel like he can be fed.
[2017-01-02] MEDS ORDERED: Sodium Chloride 0.9% 1,000 ML IV SCH (09:00)
--- NOTE | 2017-01-02 09:14 | OP ---
DATE OF PROCEDURE: 01/02/2017 PROCEDURE PERFORMED: Right IJ central line placement. PREOPERATIVE DIAGNOSIS: Poor IV access. POSTOPERATIVE DIAGNOSIS: Poor IV access. ANESTHESIA: A 1% lidocaine without epinephrine. DESCRIPTION OF PROCEDURE: Informed consent was obtained from the patient's daughter. The right IJ area was scrubbed with chlorhexidine and draped sterilely. A 1% lidocaine was used to anesthetize the entry site. Using ultrasound guidance, the vessel was cannulated with a great deal of difficulty. I could not get blood flow, but it was clear that the catheter was in the IJ. A janna dewire was placed and the line was placed via the modified Seldinger technique. The triple lumen ca theter flushed with venous blood in three ports. Postoperative x-ray is pending.
[2017-01-02] MEDS: Pantoprazole 40 MG VIAL IVP SCH (09:32)
[2017-01-02] MEDS: Propofol 1,000 MG/100 ML VIAL IV PRN (09:32)
[2017-01-02] MEDS: Meropenem 1 GM in Sodium Chloride 0.9% 100 ML IVPB SCH ×2 (09:32→16:45)
--- NOTE | 2017-01-02 09:48 | RAD ---
PORTABLE AP CHEST: Date: 01/02/17 HISTORY: On ventilator. COMPARISON: 01/01/17. FINDINGS: Endotracheal tube remains in place and unchanged in position. There has been interval placement of a nasogastric tube with tip overlying the region of the left lung base/left upper quadrant which prob ably overlies the fundus of the stomach. There is a left pleural effusion. Increased opacity is now present at the right lung base, which has developed in the interim. Findings may be related to eithe r aspiration pneumonitis or a developing area of pneumonia. Minimal parenchymal changes are again se en at the left lung base. There is elevation of the left hemidiaphragm noted on prior CT abdomen on 12/30/16. No other interval change. IMPRESSION: 1. Interval placement of nasogastric tube which overlies the left lung base. Patient was noted to h ave elevation of the left hemidiaphragm which probably accounts for this finding, and the nasogastri c tube likely overlies the fundus of the stomach. 2. Left pleural effusion. 3. Interval development of parenchymal change at the right lung base, as well as in the region of t he lingula. These findings may be related to either areas of pneumonia or aspiration pneumonitis. Co ntinued follow-up to resolution is recommended. POS: [facility]
--- NOTE | 2017-01-02 10:24 | PRG ---
DATE OF SERVICE: 01/02/2017 SUBJECTIVE: The patient is still intubated, nasogastric tube seems to be working well. OBJECTIVE: VITAL SIGNS: Pulse is 119, blood pressure 124/69, respiratory rate 26, temperature 98.6. CHEST: Clear. CARDIOVASCULAR: Regular rate and rhythm. ABDOMEN: Still slightly distended and tympanitic diffusely. No rebound or guarding is noted. Gretchen l sounds are absent. EXTREMITIES: Normal. LABORATORY DATA: Shows a chloride of 113, CO2 18, BUN 60, creatinine 2.30, calcium 7.3, white blood cell count 10.9, hemoglobin 8.6, hematocrit 26.0. He has 46% bands. X-RAY FINDINGS: Chest x-ray shows interval placement of nasogastric tube, left pleural effusion, in terval development of parenchymal changes in the right lung base as well as in the region of the deepthi gula related to either pneumonia or aspiration pneumonitis. RECOMMENDATIONS: 1. If the patient is considered a candidate, we would consider beginning TPN. 2. Abdominal films.
--- NOTE | 2017-01-02 10:34 | RAD ---
RADIOGRAPH OF CHEST SINGLE VIEW: COMPARISON: Earlier same day. CLINICAL HISTORY: Central line placement. FINDINGS: There is a right internal jugular venous catheter which terminates in the overlying SVC region. Ent vivek catheter and endotracheal tube remain. There are extrinsic artifacts which limit detail. Rede monstration of bibasilar and perihilar densities. Probable superimposed pleural fluid, although lef t lung base is incompletely visualized. There is no obvious post procedure pneumothorax. IMPRESSION: 1. Interval placement of right internal jugular catheter as above. 2. Evidence of edema. Superimposed pneumonia not excluded. Continued followup is recommended. POS: [facility]
[2017-01-02 11:20] LABS: Magnesium 1.7 mg/dL (1.6-2.6); Phosphorus 6.6 mg/dL (2.3-4.7)
--- NOTE | 2017-01-02 11:22 | PDOC.PN ---
- Subjective Encounter Start Date: 01/02/17 Encounter Start Time: 10:00 -: non-verbal NGtube found to be in left lung. no acute night events - Objective Resuscitation Status: Resuscitation Status DNR:Do Not Resuscitate Vital Signs & Weight: Vital Signs (12 hours) Temp Pulse Resp Pulse Ox 01/02/17 10:05 122 H 01/02/17 06:55 119 H 01/02/17 06:00 15 01/02/17 04:00 98.6 F 15 01/02/17 02:38 113 H 01/02/17 02:00 15 01/02/17 00:00 98.4 F 118 H 15 99 Weight Admit Weight 168 lb 14.4 oz Weight 182 lb 1.629 oz Most Recent Monitor Data Heart Rate from ECG 120 NIBP 149/68 NIBP BP-Mean 101 Respiration from ECG 15 SpO2 99 I&O: 01/01/17 01/02/17 01/03/17 06:59 06:59 06:59 Intake Total 3252.5 3562.3 Output Total 114 2260 Balance 3138.5 1302.3 Result Diagrams: 01/02/17 06:51 01/02/17 06:51 Phys Exam - Physical Examination HEENT: PERRLA, sclera anicteric Neck: no JVD, supple Respiratory: no wheezing mild rales bibasilar Cardiovascular: no significant murmur tachycadic Gastrointestinal: soft Musculoskeletal: pulses present Dx/Plan (1) Acute respiratory failure Code(s): J96.00 - ACUTE RESPIRATORY FAILURE, UNSP W HYPOXIA OR HYPERCAPNIA Status: Acute (2) Cardiac arrest Code(s): I46.9 - CARDIAC ARREST, CAUSE UNSPECIFIED Status: Acute (3) Lactic acid acidosis Code(s): E87.2 - ACIDOSIS Status: Acute Comment: likley due to Hypoperfusion during CPR.Sepsis also can not be ruled out (4) SBO (small bowel obstruction) Code(s): K56.69 - OTHER INTESTINAL OBSTRUCTION * DO NOT USE * Status: Acute (5) Anemia Code(s): D64.9 - ANEMIA, UNSPECIFIED Status: Chronic Qualifiers: Anemia type: unspecified type Qualified Code(s): D64.9 - Anemia, unspecified (6) Chronic a-fib Code(s): I48.2 - CHRONIC ATRIAL FIBRILLATION Status: Chronic (7) Malnutrition Code(s): E46 - UNSPECIFIED PROTEIN-CALORIE MALNUTRITION Status: Chronic Qualifiers: Malnutrition type: unspecified type Qualified Code(s): E46 - Unspecified protein-calorie malnutrition - Plan cont current plan of care, continue antibiotics, social services designee, respiratory therapy * . NG tube readjusted cointinue current mgmt may need to consider TPN if hospice is not decided on Pulm on board. follow with recs accordingly continue vent mgmt as per pulm/instrument engineer wean off vasopressors as tolerated continue with IV hydrocrotisone and levothyroxine monitory very closely
[2017-01-02 11:35] VITALS: BMI 24.0
--- NOTE | 2017-01-02 12:17 | RAD ---
AP AND LEFT LATERAL DECUBITUS VIEWS OF THE ABDOMEN: DATE: 01/02/17. HISTORY: Small bowel obstruction. COMPARISON: 12/30/16. FINDINGS: Nasogastric tube is again noted in place and has been advanced when compared to the prior study. A nasogastric tube is again noted in place overlying the left upper quadrant and probably in the regio n of the proximal body/fundus of the stomach. There are dilated loops of small bowel with decubitus view demonstrated in a few differential air fl uid levels suggesting a partial small bowel obstruction. No free intraperitoneal gas is appreciated on the decubitus view of the abdomen. A right common femoral vein and central venous catheter is n oted in place with the tip overlying the right sacrum. A metallic density overlies the midline lowe r pelvis related to a temperature probe. 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 There is increased density at the left lung base, some of which is related to left pleural e ffusion as well as mild eventration of the anteromedial left hemidiaphragm. IMPRESSION: 1. Partial small bowel obstruction. 2. Left pleural effusion with eventration medial left hemidiaphragm noted on prior CT exam on . POS: [facility]
--- NOTE | 2017-01-02 12:23 | PQF ---
LEICHELO J CARLOS CHOWDHURY [id number] U-[id number] CLINICAL DOCUMENTATION IMPROVEMENT CLARIFICATION FORM: ICD-10 Updated PLEASE DO AN ADDENDUM TO THE PROGRESS NOTE WITH ANY DOCUMENTATION UPDATES OR ADDITIONS AND CARRY THROUGH TO DC SUMMARY. THANK YOU. Date: 01-02-17 ATTN: DR. J CARLOS CHOWDHURY Please exercise your independent, professional judgment in responding to the clarification form. Clinical indicators are provided on the bottom of this form for your review Please check appropriate box(s): [ ] Protein Calorie Malnutrition: [ ] Mild [ ] Moderate [ ] Severe [ ] Other Malnutrition (please specify) __ [ ] Underweight without malnutrition [ ] Cachexia [ ] Other diagnosis [ ] Unable to determine In addition, please specify: Present on Admission (POA): [ ] Yes [ ] No [ ] Unable to determine CLINICAL INDICATORS - SIGNS / SYMPTOMS / LABS 12-30 NURSING ASSESSMENT: BMI 22.2 CONSULT GI: CACHECTIC; ILL-APPEARING 12-31 PN ATTENDING: UNSPECIFIED PROTEIN-CALORIE MALNUTRITION 01-02 PN PULM: SEVERE MUSCLE WASTING RISK FACTORS H&P: USP PATIENT - 86 YEARS OLD - DEMENTIA ABD PAIN; SBO X-RAY - POSSIBLE PERFORATED VISCUS WOUNDCARE CONSULT: ADVANCED AGE/ EDEMA/IMMOBILITY/VASCULAR COMPROMISE LLE NON-PRESSURE ULCER - PARTIAL THICKNESS TREATMENT: NUTRITION CONSULT: ABD PAIN/ VOMITING/POOR SURGICAL CANDIDATE RECOMMEND: IF FAMILY DESIRES INVASIVE TREATMENT RECOMMEND STARTING TPN: D30 1000ML, 10% AA 1000 ML; MONITOR BOWEL FUNCTION HIGH PRIORITY F/U THANK YOU, ОЛЬГА (This form is maintained as a part of the permanent medical record) 2015 [employer]. All Rights Reserved Ольга Son RN, BS [email or web address]
--- NOTE | 2017-01-02 12:50 | PQF ---
CHELO ODOM CURTIS [id number] U-A03 [id number] CLINICAL DOCUMENTATION IMPROVEMENT CLARIFICATION FORM: ICD-10 Updated PLEASE DO AN ADDENDUM TO THE PROGRESS NOTE WITH ANY DOCUMENTATION UPDATES OR ADDITIONS AND CARRY THROUGH TO DC SUMMARY. THANK YOU. DATE: 01-02-17 ATTN: DR. J CARLOS CHOWDHURY Please exercise your independent, professional judgment in responding to the clarification form. Clinical indicators are provided on the bottom of this form for your review Please check appropriate box(s): [ ] Sepsis due to: (Pna, UTI, gangrenous gall bladder, etc.) [ ] SIRS due to non-infectious process (please specify etiology) [ ] with organ dysfunction [ ] without organ dysfunction [ ] Severe sepsis with acute organ dysfunction of: (Examples: respiratory failure, encephalopathy, acute kidney failure, other) [ ] Localized infection without sepsis [ ] Other diagnosis [ ] Unable to determine In addition, please specify: Present on Admission (POA): [ ] Yes [ ] No [ ] Unable to determine For continuity of documentation, please document condition throughout progress notes and discharge summary. Thank You. CLINICAL INDICATORS - SIGNS / SYMPTOMS / LABS H&P: Altered mental status LACTIC ACIDOSIS MIGHT BE D/T HYPOTENSION OR MIGHT BE D/T SEPSIS - CONTINUE BROAD SPECTRUM ABX 12-31 ATTENDING PN: SUSPECTED SEPSIS 01-01 ATTENDING PN : LACTIC ACID ACIDOSIS - LIKELY D/T HYPOPERFUSION DURING CPR - SEPSIS ALSO CAN NOT BE RULED OUT LABS: WBC 12-31 4.0 LACTIC ACID 12-31 @ 0006 7.9 @ 0615 6.7 @ 1537 4.7 PULSE: - TO 01-02 102 - 128 RESP 12-30 24 RISK FACTORS H&P: SBO ADVANCED AGE 86 TREATMENTS: CPOE - ICU - ON VENT CONSULTS: PULM/GI/GENERAL SURGERY/PULM/WOUNDCARE/PALLIATIVE CARE MEDS: FLAGYL; VANCOMYCIN; LEVOPHED; VASOPRESSIN; THANK YOU, ОЛЬГА (This form is maintained as a part of the permanent medical record) 2014 [employer]. All Rights Reserved Ольга Son RN, BS [email or web address] Cell [facility]
[2017-01-02] MEDS: Sodium Chloride 0.9% 1,000 ML IV SCH ×2 (18:19→22:53)
[2017-01-02] MEDS: SODIUM CHLORIDE IV SCH ×7 (23:02)
[2017-01-02] MEDS: [UNRECOGNIZED DRUG - OTHER] IV SCH ×7 (23:02)
[2017-01-02] MEDS: CALCIUM CHLORIDE IV SCH ×7 (23:02)
[2017-01-02] MEDS: SODIUM PHOSPHATE IV SCH ×7 (23:02)
[2017-01-03] MEDS: Norepinephrine 8 MG/0.9% NS 250 ML IVPB SCH ×2 (00:02→06:47)
[2017-01-03] MEDS: metroNIDAZOLE 500 MG in Premix Bag 1 BAG IVPB SCH ×4 (00:06→22:30)
[2017-01-03] MEDS: Meropenem 1 GM in Sodium Chloride 0.9% 100 ML IVPB SCH ×3 (00:08→22:30)
[2017-01-03] MEDS: Hydrocortisone Sod Succ/PF 100 mg/2 ml Vial IVP SCH ×4 (00:08→19:26)
[2017-01-03 03:56] LABS: Anion Gap 13 mmol/L (10-20); BUN (Urea Nitrogen) 49 mg/dL (8.4-25.7); Calc. Creatinine Clearance 42 mL/min (70-130); Calcium 7.6 mg/dL (7.8-10.44); Carbon Dioxide 20 mmol/L (23-31); Chloride 117 mmol/L (98-107); Estimated GFR-MDRD 44; Magnesium 1.5 mg/dL (1.6-2.6); Phosphorus 4.3 mg/dL (2.3-4.7)
[2017-01-03 04:22] LABS: Band 15 % (5-11); Dohle Bodies SLIGHT; Hematocrit 25.1 % (42.0-52.0); Mean Platelet Volume 7.7 fL (7.4-10.4); Neutrophil 81 % (42-75); Red Blood Cell (RBC) Count 2.61 mill/uL (4.70-6.10); Toxic Granulation SLIGHT; White Blood Cell (WBC) Count 11.7 thou/uL (4.8-10.8)
[2017-01-03 07:05] LABS: Oxyhemoglobin 95.3 % (94.0-97.0)
[2017-01-03 07:07] LABS: Mechanical Tidal Volume 500 ml; Mode SIMV; Pressure Support 10 cmH2O; Vent YES
[2017-01-03] MEDS ORDERED: Dextrose 5% in Water 1,000 ML IV PRN (07:15)
[2017-01-03] MEDS ORDERED: Dextrose 50% Abboject 50 ML SYRINGE SLOW IVP PRN (07:15)
--- NOTE | 2017-01-03 07:23 | PRG ---
DATE OF SERVICE: 01/03/2017 Thirty-five minutes critical care time. The patient remains intubated on mechanical ventilation. There have been no acute changes overnight . PHYSICAL EXAMINATION: VITAL SIGNS: His temperature is 98.6, pulse 116 to 125, blood pressure 127/65. ICUP is running abo ut 7, O2 sat 100%. He is currently on Levophed drip at 17.5 mcg per minute. Total intake for 24 ho urs was 4030, output 3470. HEENT: Remarkable for some bitemporal wasting. He has a right naris NG tube, he has an endotrachea l tube placed in his mouth. NECK: Without adenopathy or JVD. He has a right internal jugular venous catheter in place. LUNGS: Coarse breath sounds anteriorly. CARDIOVASCULAR: S1, S2, ranging from sinus rhythm to sinus tachycardia. ABDOMEN: Distended. Tympanic. EXTREMITIES: Without clubbing, cyanosis, or edema. LABORATORY DATA: Sodium 146, potassium 3.8, chloride 117, CO2 20, BUN 49, creatinine 1.5, glucose 1 80. Magnesium 1.5. ABG is pending. White blood cell count 11.7, hemoglobin 8, hematocrit 25.1, pl atelet count 119. Chest x-ray demonstrates blunting of both costophrenic angles. Endotracheal tube is in good positio n. The central line appears to be in good position. NG tube going down the stomach. ASSESSMENT: 1. Severe hypovolemia, which has improved after administration of IV fluids yesterday. 2. Small bowel ileus. 3. Status post cardiopulmonary arrest. 4. Acute respiratory failure requiring mechanical ventilation. PLAN: 1. Await results of today's ABG. 2. Continue TPN and nasogastric suctioning. 3. Try to wean down Levophed. 4. We will discuss with his daughter.
--- NOTE | 2017-01-03 09:19 | RAD ---
PORTABLE AP CHEST: Date: 01-03-17 History: On ventilator. Follow up evaluation. Comparison: 01-02-17 FINDINGS: The right internal jugular vein central venous catheter, endotracheal tube, and nasogastric tube rem ain in place and unchanged in position. There I s increased density again present at the left lung b ase, likely related to left pleural effusion and atelectasis. Elevation of left hemidiaphragm was se en on prior CT exam. There is mild improvement in aeration in the region of the lingula. Hazy increa sed density at the right lung base is again present and could be related to parenchymal changes due to infiltrate. There is gaseous distention of loops of small bowel in the upper abdomen which do dylan ear mildly dilated. Chest is overall unchanged from the recent study. IMPRESSION: Stable chest. POS: [facility]
[2017-01-03 09:43] LABS: Free T3 Less than 1.00 pg/mL (1.71-3.71)
[2017-01-03] MEDS: Pantoprazole 40 MG VIAL IVP SCH (10:21)
[2017-01-03] MEDS: Levothyroxine Sodium 100 MCG VIAL IVP SCH (10:21)
[2017-01-03] MEDS: Magnesium 2 GM/NS 0.9% 100 ML 2 GM in Premix Bag 1 BAG IVPB PRN (10:22)
--- NOTE | 2017-01-03 11:33 | PDOC.PN ---
- Subjective Encounter Start Date: 01/03/17 Encounter Start Time: 11:31 Subjective: remains intubated,sedated ,on pressors - Objective Resuscitation Status: Resuscitation Status DNR:Do Not Resuscitate MAR Reviewed: Yes Vital Signs & Weight: Vital Signs (12 hours) Temp Pulse Resp 01/03/17 10: 147 H 01/03/17 07:00 99.4 F 01/03/17 06:42 126 H 01/03/17 06:00 15 01/03/17 04:00 98.6 F 15 01/03/17 02:00 15 01/03/17 00:00 98.3 F 15 Weight Admit Weight 168 lb 14.4 oz Weight 182 lb 1.629 oz Most Recent Monitor Data Heart Rate from ECG 136 NIBP 106/68 NIBP BP-Mean 74 Respiration from ECG 14 SpO2 97 I&O: 01/02/17 01/03/17 01/04/17 06:59 06:59 06:59 Intake Total 3562.3 6030.3 Output Total 2260 3470 625 Balance 1302.3 2560.3 -625 Result Diagrams: 01/03/17 03:15 01/03/17 03:15 Additional Labs: Accuchecks 01/03/17 01/02/17 01/02/17 06:48 18:20 10:59 POC Glucose 234 H 114 H 129 H Microbiology 12/30/16 22:30 Central Line - Right Common Femoral Vein Blood Culture - Preliminary NO GROWTH AT 48 HOURS 12/30/16 19:55 Venous blood - Right Arm Blood Culture - Preliminary NO GROWTH AT 48 HOURS Laboratory Tests 12/31/16 01/01/17 01/02/17 06:15 04:00 06:51 Sodium 142 141 144 Creatinine 1.22 2.32 H 2.30 H 01/03/17 03:15 Sodium 146 H Creatinine 1.52 H Laboratory Tests 01/03/17 03:15 Free T4 0.51 L Free T3 Less than 1.00 L TSH 3rd Generation 3.0253 Phys Exam - Physical Examination cacahectic,intubated.opens eyes w loud noise HEENT: PERRLA, moist MMs, sclera anicteric, oral pharynx no lesions Neck: no JVD Respiratory: no wheezing decreased at bases Cardiovascular: RRR tachy Gastrointestinal: soft, no distention, positive bowel sounds Musculoskeletal: pulses present, edema present sedated Deviation from normal: sedated Deviation from normal: B/l LE brusing and erythema Dx/Plan (1) Acute respiratory failure Code(s): J96.00 - ACUTE RESPIRATORY FAILURE, UNSP W HYPOXIA OR HYPERCAPNIA Status: Acute (2) Cardiac arrest Code(s): I46.9 - CARDIAC ARREST, CAUSE UNSPECIFIED Status: Acute (3) SBO (small bowel obstruction) Code(s): K56.69 - OTHER INTESTINAL OBSTRUCTION * DO NOT USE * Status: Acute (4) Lactic acid acidosis Code(s): E87.2 - ACIDOSIS Status: Acute Comment: likley due to Hypoperfusion /SBO .Sepsis also can not be ruled out (5) Shock Code(s): R57.9 - SHOCK, UNSPECIFIED Status: Acute Comment: Septic Vs cardiogenic. On IV steroids and Pressor support (6) Sepsis Code(s): A41.9 - SEPSIS, UNSPECIFIED ORGANISM Status: Suspected Comment: Likely GI source (7) Anemia Code(s): D64.9 - ANEMIA, UNSPECIFIED Status: Chronic Qualifiers: Anemia type: unspecified type Qualified Code(s): D64.9 - Anemia, unspecified (8) Chronic a-fib Code(s): I48.2 - CHRONIC ATRIAL FIBRILLATION Status: Chronic (9) Malnutrition Code(s): E46 - UNSPECIFIED PROTEIN-CALORIE MALNUTRITION Status: Chronic Qualifiers: Malnutrition type: unspecified type Qualified Code(s): E46 - Unspecified protein-calorie malnutrition (10) Hypothyroid Code(s): E03.9 - HYPOTHYROIDISM, UNSPECIFIED Status: Chronic Comment: On IV levothyroxine - Plan tong catheter, continue antibiotics, respiratory therapy, DVT proph w/SCDs remains in critical condition.cont Abx, pressors. -: vent support.PCCM following.IVF -: Hr fast but won't tolerate any Rx for it given low BP.Try Digoxin -: End of life discussion underway.appreciate PCT help -: am labs.supportive care. poor prognosis * . Review of Systems - Review of Systems Other: unobtainable due to sedated/intubated state - Medications/Allergies Allergies/Adverse Reactions: Allergies Allergy/AdvReac Type Severity Reaction Status Date / Time allopurinol Allergy Verified 10/20/16 09:47 naproxen Allergy Verified 10/20/16 09:47 Penicillins Allergy Verified 10/20/16 09:47 pentoxifylline [From Trental] Allergy Verified 10/20/16 09:47 Sulfa (Sulfonamide Allergy Verified 10/20/16 09:47 Antibiotics) Medications: Current Medications Dextrose/Water (Dextrose 50%) 25 gm SLOW IVP PRN PRN PRN Reason: Hypoglycemia Glucagon (Glucagon) 1 mg IM PRN PRN PRN Reason: Hypoglycemia Hydrocortisone Sodium Succinate (Solu-Cortef) 50 mg IVP Q6HR JORGE L Stop: 01/06/17 18:01 Last Admin: 01/03/17 06:44 Dose: 50 mg Vasopressin 40 unit/Miscellaneous Medication 1 each/ Sodium Chloride 102 mls @ 0 mls/hr IV INF JORGE L; As Directed PRN Reason: Protocol Metronidazole 500 mg/ Device 100 mls @ 100 mls/hr IVPB 0700,1500,2300 JORGE L Last Admin: 01/03/17 06:47 Dose: 100 mls Ascorbic Acid 1,500 mg/ Sodium (Chloride) 53 mls @ 100 mls/hr IVPB Q6HR JORGE L Stop: 01/04/17 18:32 Last Admin: 01/03/17 04:58 Dose: Not Given Norepinephrine Bitartrate (Levophed) 250 mls @ 0 mls/hr IVPB INF JORGE L; Titrate PRN Reason: Protocol Last Admin: 01/03/17 06:47 Dose: 250 mls Thiamine HCl 200 mg/ Sodium (Chloride) 52 mls @ 100 mls/hr IVPB Q12HR JORGE L Stop: 01/03/17 21:32 Last Admin: 01/03/17 10:21 Dose: 52 mls Fentanyl (Fentanyl Cadd) 250 mls @ 0 mls/hr IVPB INF JORGE L; Titrate PRN Reason: Protocol Stop: 01/29/17 22:42 Last Admin: 01/01/17 18:05 Dose: 250 mls Fentanyl Citrate (Fentanyl Bolus) 250 mls @ 0 mls/hr IVPB PRN PRN; As Directed PRN Reason: VENTILATION SEDATION PROTOCOL Stop: 01/29/17 22:42 Potassium Chloride 40 meq/ (Sodium Chloride) 270 mls @ 135 mls/hr IVPB ASDIR PRN PRN Reason: FOR SERUM K+ 2.5 - 3.5 Potassium Chloride 40 meq/ (Device) 100 mls @ 50 mls/hr IVPB ASDIR PRN PRN Reason: FOR SERUM K+ 2.5 - 3.5 Magnesium Sulfate 1 gm/ Sodium (Chloride) 102 mls @ 102 mls/hr IV PRN PRN PRN Reason: MAG LEVEL 1.4 - 2.0 Magnesium Sulfate 2 gm/ Device 100 mls @ 100 mls/hr IVPB ASDIR PRN PRN Reason: MAGNESIUM < 1.4 Last Admin: 01/03/17 10:22 Dose: 100 mls Potassium Phosphate 9 mmol/ (Sodium Chloride) 103 mls @ 25.75 mls/hr IVPB ASDIR PRN PRN Reason: Phosphate 1.0-1.8 Potassium Phosphate 12 mmol/ (Sodium Chloride) 254 mls @ 63.5 mls/hr IV ASDIR PRN PRN Reason: Serum phosphate 0.5-0.9 Potassium Phosphate 15 mmol/ (Sodium Chloride) 255 mls @ 63.75 mls/hr IV ASDIR PRN PRN Reason: Serum Phos < 0.5 Sodium Chloride 70 meq/ Sodium Phosphate 20 mmol/ Calcium Chloride 10 meq/ Magnesium Sulfate 10 meq/ Multivitamins 10 ml/ Chromium/Copper/Manganese/Seleni/ Zn 5 ml/Amino Acids/Dextrose/ Fat Emulsion Intravenous 2,298.9826 mls @ 95.791 mls/hr IV 2200 JORGE L Last Admin: 01/02/17 23:02 Dose: 2,298.9826 mls Dextrose/Water (D5w) 1,000 mls @ 0 mls/hr IV .Q0M PRN; As Directed PRN Reason: Hypoglycemia Meropenem 1 gm/ Sodium (Chloride) 100 mls @ 200 mls/hr IVPB 1000,2200 JORGE L Insulin Human Lispro (Humalog) 0 units SC .MODERATE SLIDING SC PRN PRN Reason: Moderate Correctional Scale Levothyroxine Sodium (Synthroid) 37.5 mcg IVP 0600 JORGE L Last Admin: 01/03/17 10:21 Dose: 37.5 mcg Lorazepam (Ativan) 2 mg SLOW IVP Q2H PRN PRN Reason: Anxiety to achieve [place]augherty 2-3 Stop: 01/29/17 22:42 Magnesium Oxide (Magnesium Oxide) 400 mg PO BIDPRN PRN PRN Reason: FOR SERUM MAG 1.4 - 2.0 Magnesium Oxide (Magnesium Oxide) 800 mg PO PRN PRN PRN Reason: FOR SERUM MAG < 1.4 Miscellaneous Medication (Phos-Nak) 1 pkt PO TIDPRN PRN PRN Reason: FOR PHOS LEVEL 1.0 - 1.8 Miscellaneous Medication (Phos-Nak) 2 pkt PO TIDPRN PRN PRN Reason: FOR PHOS LEVEL 0.5 - 1.0 Morphine Sulfate (Morphine Sulfate) 2 mg SLOW IVP Q2H PRN PRN Reason: PAIN TO ACHIEVE DAUGHERTY OF 2-3 Stop: 01/29/17 22:42 Discontinue Previous Narcotic Pain Medications And Benzodiazepines 1 each FS .ONE [facility] Stop: 01/29/17 22:42 Ccu Electrolyte (Replacement Protocol) 0 each FS PRN PRN PRN Reason: FOR ELECTROLYTE REPLACEMENT Ondansetron HCl (Zofran) 4 mg IVP Q6H PRN PRN Reason: Nausea/Vomiting Pantoprazole Sodium (Protonix) 40 mg IVP [facility] Last Admin: 01/03/17 10:21 Dose: 40 mg Potassium Chloride (K-Dur) 40 meq PO ASDIR PRN PRN Reason: FOR SERUM K+ 2.5 - 3.5 Potassium Chloride (Klor-Con) 40 meq PER TUBE ASDIR PRN PRN Reason: FOR SERUM K+ 2.5-3.5 Propofol (Diprivan) 1,000 mg IV INF PRN; Protocol PRN Reason: TO ACHIEVE DAUGHERTY SCORE 2-3 Stop: 01/29/17 22:42 Last Admin: 01/02/17 09:32 Dose: 1,000 mg Sodium Chloride (Flush - Normal Saline) 10 ml FS [facility] Last Admin: 01/03/17 10:22 Dose: 10 ml
[2017-01-03] MEDS ORDERED: Digoxin 0.5 MG/2 ML AMP SLOW IVP SCH (11:45)
--- NOTE | 2017-01-03 14:25 | PRG ---
DATE OF SERVICE: 01/03/2017 SUBJECTIVE: The patient is still intubated and adds nothing to history of present illness. OBJECTIVE: VITAL SIGNS: Pulse is 126, blood pressure 123/67, respiratory rate 16, temperature is 98.2. CHEST: Clear. CARDIOVASCULAR: Regular rate and rhythm. ABDOMEN: Distended and diffusely tympanitic. Bowel sounds are absent. RECTAL: Deferred. LABORATORY DATA AND X-RAY FINDINGS: Shows a white blood cell count of 11.7, hemoglobin 8, platelet count of 119. He has 15% bands. Chemistry shows sodium 146, chloride 117, CO2 20, BUN 49, creatini ne 1.52, glucose 180, calcium 7.6, magnesium 1.5. Urinalysis negative. Abdominal x-rays from yeste rday show partial small-bowel obstruction, left pleural effusion with extravasation with eventration of medial left hemidiaphragm. ASSESSMENT: Bowel obstruction - reviewing the x-rays appears that some of this bowel may be gone. RECOMMENDATIONS: Rectal tube.
[2017-01-03] MEDS: HumaLOG 300 UNITS/3 ML VIAL SC PRN (19:26)
[2017-01-03] MEDS: Fentanyl 20 MCG/ML 250 ML IVPB SCH (21:56)
[2017-01-03] MEDS: Propofol 1,000 MG/100 ML VIAL IV PRN (22:36)
[2017-01-03] MEDS: SODIUM PHOSPHATE IV SCH ×7 (22:36)
[2017-01-03] MEDS: CALCIUM CHLORIDE IV SCH ×7 (22:36)
[2017-01-03] MEDS: SODIUM CHLORIDE IV SCH ×7 (22:36)
[2017-01-03] MEDS: [UNRECOGNIZED DRUG - OTHER] IV SCH ×7 (22:36)
[2017-01-04] MEDS: Hydrocortisone Sod Succ/PF 100 mg/2 ml Vial IVP SCH ×5 (00:58→23:35)
[2017-01-04] MEDS: HumaLOG 300 UNITS/3 ML VIAL SC PRN ×5 (01:00→23:38)
[2017-01-04] MEDS: Levothyroxine Sodium 100 MCG VIAL IVP SCH (06:17)
[2017-01-04] MEDS: metroNIDAZOLE 500 MG in Premix Bag 1 BAG IVPB SCH ×3 (06:18→23:35)
[2017-01-04 06:34] LABS: Mean Platelet Volume 8.5 fL (7.4-10.4); Red Blood Cell (RBC) Count 2.53 mill/uL (4.70-6.10); White Blood Cell (WBC) Count 12.3 thou/uL (4.8-10.8)
[2017-01-04 06:38] LABS: Anion Gap 8 mmol/L (10-20); BUN (Urea Nitrogen) 48 mg/dL (8.4-25.7); Calc. Creatinine Clearance 62 mL/min (70-130); Calcium 7.8 mg/dL (7.8-10.44); Carbon Dioxide 24 mmol/L (23-31); Chloride 119 mmol/L (98-107); Estimated GFR-MDRD 69; Magnesium 1.9 mg/dL (1.6-2.6); Phosphorus 2.8 mg/dL (2.3-4.7)
[2017-01-04 06:53] LABS: Band 23 % (5-11); Neutrophil 73 % (42-75)
[2017-01-04 06:56] LABS: Sodium 149 mmol/L (135-148)
[2017-01-04 06:58] LABS: Mode PSV; Modified Allen's Test NOT DONE; Pressure Support 10 cmH2O; Vent YES
--- NOTE | 2017-01-04 07:38 | RAD ---
AP VIEW OF CHEST: Date: 01/04/17 INDICATION: Intubation. FINDINGS: Left-sided pleural parenchymal opacities persist. The patient remains intubated with gastric cathete r and right IJ central venous catheter. Hazy opacities involving both lower lobes may reflect edema or pneumonia are similar. No pneumothorax is evident. Osseous structures are unchanged. IMPRESSION: Stable exam. POS: [facility]
--- NOTE | 2017-01-04 08:19 | PRG ---
DATE OF SERVICE: 01/04/2017 He is currently off sedation, is awake, follows some commands. PHYSICAL EXAMINATION: VITAL SIGNS: His temperature is 97.9, pulse 128, pressure 119/56. He is on no Levophed as of 5:00 a.m. this morning, but I think he has intermittently had to go back on it through the day yesterday. Total intake for 24 hours 4, output 2470. HEENT: Unremarkable except for the tubes in place. NECK: No JVD. LUNGS: Clear anteriorly. CARDIOVASCULAR: S1 and S2, tachycardic. ABDOMEN: Distended. Tympanic. EXTREMITIES: Edematous. LABORATORY DATA: Sodium 140, potassium 3.0, chloride 119, CO2 24, BUN 48, creatinine 1.0, glucose 1 76, pH 7.36, pCO2 38, pO2 of 66 on CPAP 5, pressure support 10, FiO2 25%. White blood cell count 12 , hematocrit 25, platelet count 82. ASSESSMENT: 1. Small-bowel obstruction. 2. Acute respiratory failure requiring mechanical ventilation. 3. Renal insufficiency. 4. Hyponatremia. 5. Hypokalemia. PLAN: 1. Correct electrolytes. 2. Need to discuss with daughter. I would really like for his abdominal situation to be better bef ore extubating him. 3. Prognosis is poor.
[2017-01-04] MEDS ORDERED: Digoxin 0.5 MG/2 ML AMP SLOW IVP SCH ×2 (09:00→16:30)
[2017-01-04] MEDS ORDERED: Sterile Water Irrigation 1,000 ML BOT FS SCH (09:15)
[2017-01-04] MEDS ORDERED: Enoxaparin Sodium 40 MG/0.4 ML SYRINGE SC SCH (10:30)
[2017-01-04] MEDS: Meropenem 1 GM in Sodium Chloride 0.9% 100 ML IVPB SCH ×2 (10:31→21:25)
[2017-01-04] MEDS: Pantoprazole 40 MG VIAL IVP SCH (10:35)
[2017-01-04] MEDS: Magnesium 2 GM/NS 0.9% 100 ML 2 GM in Premix Bag 1 BAG IVPB PRN (10:50)
[2017-01-04] MEDS: Potassium Chloride 40 MEQ in Premix Bag 1 BAG IVPB PRN (10:50)
--- NOTE | 2017-01-04 12:29 | PRG ---
DATE OF SERVICE: 01/04/2017 SUBJECTIVE: The patient is still on the ventilator. OBJECTIVE: VITAL SIGNS: Pulse is 126, respiratory rate is 14, and temperature 98.6. CHEST: Clear. CARDIOVASCULAR: Regular rate and rhythm. ABDOMEN: Distended, tympanitic diffusely. Bowel sounds are absent. LABORATORY DATA: Shows a white blood cell count 12.8, hemoglobin 7.9, hematocrit 25.0, and 23 bands . Chemistry shows sodium 148, potassium 3.0, chloride 119, BUN 48, creatinine 1.02, and glucose 176 . Calcium, phosphorus and magnesium are normal. ASSESSMENT: 1. Small bowel obstruction -- this is not responding to conservative treatment and the patient has been deemed a nonsurgical candidate per Dr. Moreno. 2. Respiratory failure. RECOMMENDATIONS: 1. We would consider hospice or comfort care. 2. Decrease fentanyl as this may be affecting GI function. 3. Add Reglan.
[2017-01-04] MEDS: Metoclopramide HCl 10 MG/2 ML VIAL IVP SCH ×2 (13:20→21:31)
--- NOTE | 2017-01-04 13:44 | RAD ---
TWO VIEWS ABDOMEN: History: Small bowel obstruction, NG tube placement. FINDINGS: Supine and left lateral decubitus images demonstrate mild to moderate gaseous and fluid distention i n numerous loops of small bowel. There is gas present within the colon. There are differential airfl uid levels seen within the decubitus films suspicious for at least a mild partial small bowel obstru ction. Initial images demonstrate no evidence of the previously seen gastric catheter coiled in the region of the cardia on the comparison chest radiograph performed earlier on 01-04-17 at 4:41 a.m. Nazario bsequent images, especially in the decubitus position demonstrate the gastric catheter seen in the r egion of the distal gastroesophageal junction. Would recommend advancement. IMPRESSION: 1. Findings consistent with a mild partial small bowel obstruction. The degree of small bowel disten tion appears slightly less prominent than on a comparison study dated 01-02-17. Would recommend cora nued follow up. 2. Gastric catheter tip seen within the region of the distal GE junction. Recommend advancement. POS: [facility]
--- NOTE | 2017-01-04 14:29 | PDOC.PN ---
- Subjective Encounter Start Date: 01/04/17 Encounter Start Time: 14:29 Subjective: remains intubated and unresponsive - Objective Resuscitation Status: Resuscitation Status DNR:Do Not Resuscitate MAR Reviewed: Yes Vital Signs & Weight: Vital Signs (12 hours) Temp Pulse Resp BP 01/04/17 14:14 130 H 114/62 01/04/17 12:00 98.4 F 19 01/04/17 10:33 126 H 01/04/17 10:29 126 H 122/46 L 01/04/17 10:00 11 L 01/04/17 08:00 11 L 01/04/17 07:00 98.7 F 01/04/17 06:15 114 H 119/56 L 01/04/17 05:49 10 L 01/04/17 04:00 97.9 F 12 Weight Admit Weight 168 lb 14.4 oz Weight 181 lb 7.047 oz Most Recent Monitor Data Heart Rate from ECG 119 NIBP 132/61 NIBP BP-Mean 86 Respiration from ECG 17 SpO2 96 I&O: 01/03/17 01/04/17 01/05/17 06:59 06:59 06:59 Intake Total 6030.3 2844.8 0 Output Total 3470 2470 580 Balance 2560.3 374.8 -580 Result Diagrams: 01/04/17 05:35 01/04/17 05:35 Additional Labs: Microbiology 12/30/16 22:30 Central Line - Right Common Femoral Vein Blood Culture - Preliminary NO GROWTH AT 48 HOURS 12/30/16 19:55 Venous blood - Right Arm Blood Culture - Preliminary NO GROWTH AT 48 HOURS Laboratory Tests 12/31/16 01/01/17 01/02/17 06:15 04:00 06:51 Sodium 142 141 144 Creatinine 1.22 2.32 H 2.30 H 01/03/17 01/04/17 03:15 05:35 Sodium 146 H 148 H Creatinine 1.52 H 1.02 Radiology Reviewed by me: Yes (KUB-less distention) Phys Exam - Physical Examination Constitutional: NAD HEENT: PERRLA, moist MMs, sclera anicteric, oral pharynx no lesions Neck: no nodes, no JVD, supple, full ROM Respiratory: no wheezing, no rales, no rhonchi, clear to auscultation bilateral tachycardia Gastrointestinal: soft distended Musculoskeletal: no edema, pulses present sedated Deviation from normal: sedated Dx/Plan (1) Acute respiratory failure Code(s): J96.00 - ACUTE RESPIRATORY FAILURE, UNSP W HYPOXIA OR HYPERCAPNIA Status: Acute (2) Cardiac arrest Code(s): I46.9 - CARDIAC ARREST, CAUSE UNSPECIFIED Status: Acute (3) SBO (small bowel obstruction) Code(s): K56.69 - OTHER INTESTINAL OBSTRUCTION * DO NOT USE * Status: Acute (4) Lactic acid acidosis Code(s): E87.2 - ACIDOSIS Status: Acute Comment: likley due to Hypoperfusion /SBO .Sepsis also can not be ruled out (5) Shock Code(s): R57.9 - SHOCK, UNSPECIFIED Status: Acute Comment: Septic Vs cardiogenic. On IV steroids and Pressor support (6) Sepsis Code(s): A41.9 - SEPSIS, UNSPECIFIED ORGANISM Status: Suspected Comment: Likely GI source (7) Anemia Code(s): D64.9 - ANEMIA, UNSPECIFIED Status: Chronic Qualifiers: Anemia type: unspecified type Qualified Code(s): D64.9 - Anemia, unspecified (8) Chronic a-fib Code(s): I48.2 - CHRONIC ATRIAL FIBRILLATION Status: Chronic Comment: wRVR (9) Malnutrition Code(s): E46 - UNSPECIFIED PROTEIN-CALORIE MALNUTRITION Status: Chronic Qualifiers: Malnutrition type: unspecified type Qualified Code(s): E46 - Unspecified protein-calorie malnutrition (10) Hypothyroid Code(s): E03.9 - HYPOTHYROIDISM, UNSPECIFIED Status: Chronic Comment: On IV levothyroxine - Plan continue antibiotics, PT/OT, DVT proph w/SCDs Remains critically ill. poor prognosis.discussion ongoing regarding hospice -: vent management per PCCM. -: increase Digoxin for RVR. pt still w low BP & can't handle BB/CCB -: Will avoid Amiodarone as no anticoagulation on board. -: cont supportive care.am labs * . Review of Systems - Review of Systems Other: unobtainable due to sedation and encephalopathy - Medications/Allergies Allergies/Adverse Reactions: Allergies Allergy/AdvReac Type Severity Reaction Status Date / Time allopurinol Allergy Verified 10/20/16 09:47 naproxen Allergy Verified 10/20/16 09:47 Penicillins Allergy Verified 10/20/16 09:47 pentoxifylline [From Trental] Allergy Verified 10/20/16 09:47 Sulfa (Sulfonamide Allergy Verified 10/20/16 09:47 Antibiotics) Medications: Current Medications Dextrose/Water (Dextrose 50%) 25 gm SLOW IVP PRN PRN PRN Reason: Hypoglycemia Digoxin (Lanoxin) 0.125 mg SLOW IVP DAILY JORGE L Last Admin: 01/04/17 10:33 Dose: 0.125 mg Enoxaparin Sodium (Lovenox) 40 mg SC 0900 JORGE L Glucagon (Glucagon) 1 mg IM PRN PRN PRN Reason: Hypoglycemia Hydrocortisone Sodium Succinate (Solu-Cortef) 50 mg IVP Q6HR JORGE L Stop: 01/06/17 18:01 Last Admin: 01/04/17 10:52 Dose: 50 mg Vasopressin 40 unit/Miscellaneous Medication 1 each/ Sodium Chloride 102 mls @ 0 mls/hr IV INF JORGE L; As Directed PRN Reason: Protocol Metronidazole 500 mg/ Device 100 mls @ 100 mls/hr IVPB 0700,1500,2300 JORGE L Last Admin: 01/04/17 06:18 Dose: 100 mls Ascorbic Acid 1,500 mg/ Sodium (Chloride) 53 mls @ 100 mls/hr IVPB Q6HR JORGE L Stop: 01/04/17 18:32 Last Admin: 01/04/17 13:20 Dose: 53 mls Norepinephrine Bitartrate (Levophed) 250 mls @ 0 mls/hr IVPB INF JORGE L; Titrate PRN Reason: Protocol Last Admin: 01/03/17 06:47 Dose: 250 mls Fentanyl Citrate (Fentanyl Bolus) 250 mls @ 0 mls/hr IVPB PRN PRN; As Directed PRN Reason: VENTILATION SEDATION PROTOCOL Stop: 01/29/17 22:42 Potassium Chloride 40 meq/ (Sodium Chloride) 270 mls @ 135 mls/hr IVPB ASDIR PRN PRN Reason: FOR SERUM K+ 2.5 - 3.5 Potassium Chloride 40 meq/ (Device) 100 mls @ 50 mls/hr IVPB ASDIR PRN PRN Reason: FOR SERUM K+ 2.5 - 3.5 Last Admin: 01/04/17 10:50 Dose: 100 mls Magnesium Sulfate 1 gm/ Sodium (Chloride) 102 mls @ 102 mls/hr IV PRN PRN PRN Reason: MAG LEVEL 1.4 - 2.0 Magnesium Sulfate 2 gm/ Device 100 mls @ 100 mls/hr IVPB ASDIR PRN PRN Reason: MAGNESIUM < 1.4 Last Admin: 01/04/17 10:50 Dose: 100 mls Potassium Phosphate 9 mmol/ (Sodium Chloride) 103 mls @ 25.75 mls/hr IVPB ASDIR PRN PRN Reason: Phosphate 1.0-1.8 Potassium Phosphate 12 mmol/ (Sodium Chloride) 254 mls @ 63.5 mls/hr IV ASDIR PRN PRN Reason: Serum phosphate 0.5-0.9 Potassium Phosphate 15 mmol/ (Sodium Chloride) 255 mls @ 63.75 mls/hr IV ASDIR PRN PRN Reason: Serum Phos < 0.5 Dextrose/Water (D5w) 1,000 mls @ 0 mls/hr IV .Q0M PRN; As Directed PRN Reason: Hypoglycemia Meropenem 1 gm/ Sodium (Chloride) 100 mls @ 200 mls/hr IVPB 1000,2200 [facility] Last Admin: 01/04/17 10:31 Dose: 100 mls Sodium Acetate 70 meq/Potassium Phosphate 20 mmol/Calcium Gluconate 10 meq/ Magnesium Sulfate 15 meq/Multivitamins 10 ml/ Chromium/Copper/Manganese/Seleni/ Zn 5 ml/ Amino Acids/Dextrose/ Fat Emulsion Intravenous 2,332.1003 mls @ 97.171 mls/hr IV 2200 JORGE L Insulin Human Lispro (Humalog) 0 units SC .MODERATE SLIDING SC PRN PRN Reason: Moderate Correctional Scale Last Admin: 01/04/17 13:26 Dose: 4 unit Levothyroxine Sodium (Synthroid) 37.5 mcg IVP 0600 [facility] Last Admin: 01/04/17 06:17 Dose: 37.5 mcg Lorazepam (Ativan) 2 mg SLOW IVP Q2H PRN PRN Reason: Anxiety to achieve [place]augherty 2-3 Stop: 01/29/17 22:42 Magnesium Oxide (Magnesium Oxide) 400 mg PO BIDPRN PRN PRN Reason: FOR SERUM MAG 1.4 - 2.0 Magnesium Oxide (Magnesium Oxide) 800 mg PO PRN PRN PRN Reason: FOR SERUM MAG < 1.4 Metoclopramide HCl (Reglan) 10 mg IVP Q8HR [facility] Last Admin: 10/04/17 13:20 Dose: 10 mg Miscellaneous Medication (Phos-Nak) 1 pkt PO TIDPRN PRN PRN Reason: FOR PHOS LEVEL 1.0 - 1.8 Miscellaneous Medication (Phos-Nak) 2 pkt PO TIDPRN PRN PRN Reason: FOR PHOS LEVEL 0.5 - 1.0 Morphine Sulfate (Morphine Sulfate) 2 mg SLOW IVP Q2H PRN PRN Reason: PAIN TO ACHIEVE DAUGHERTY OF 2-3 Stop: 01/29/17 22:42 Discontinue Previous Narcotic Pain Medications And Benzodiazepines 1 each FS .ONE [facility] Stop: 01/29/17 22:42 Ccu Electrolyte (Replacement Protocol) 0 each FS PRN PRN PRN Reason: FOR ELECTROLYTE REPLACEMENT Ondansetron HCl (Zofran) 4 mg IVP Q6H PRN PRN Reason: Nausea/Vomiting Pantoprazole Sodium (Protonix) 40 mg IVP [facility] Last Admin: 01/04/17 10:35 Dose: 40 mg Potassium Chloride (K-Dur) 40 meq PO ASDIR PRN PRN Reason: FOR SERUM K+ 2.5 - 3.5 Potassium Chloride (Klor-Con) 40 meq PER TUBE ASDIR PRN PRN Reason: FOR SERUM K+ 2.5-3.5 Propofol (Diprivan) 1,000 mg IV INF PRN; Protocol PRN Reason: TO ACHIEVE DAUGHERTY SCORE 2-3 Stop: 01/29/17 22:42 Last Admin: 01/03/17 22:36 Dose: 1,000 mg Sodium Chloride (Flush - Normal Saline) [facility] Last Admin: 01/04/17 10:51 Dose: 10 ml
[2017-01-04] MEDS: Propofol 1,000 MG/100 ML VIAL IV PRN (21:14)
[2017-01-04] MEDS ORDERED: SODIUM PHOSPHATE IV SCH ×7 (22:00)
[2017-01-04] MEDS ORDERED: [UNRECOGNIZED DRUG - OTHER] IV SCH ×7 (22:00)
[2017-01-04] MEDS ORDERED: CALCIUM GLUCONATE IV SCH ×7 (22:00)
[2017-01-04] MEDS ORDERED: SODIUM ACETATE IV SCH ×7 (22:00)
[2017-01-04] MEDS ORDERED: POTASSIUM PHOSPHATE IV SCH ×7 (22:00)
[2017-01-04] MEDS ORDERED: SODIUM CHLORIDE IV SCH ×7 (22:00)
[2017-01-04] MEDS ORDERED: CALCIUM CHLORIDE IV SCH ×7 (22:00)
[2017-01-04] MEDS ORDERED: [UNRECOGNIZED DRUG - OTHER] IV SCH ×7 (22:00)
[2017-01-05 04:57] LABS: Anion Gap 8 mmol/L (10-20); BUN (Urea Nitrogen) 53 mg/dL (8.4-25.7); Calc. Creatinine Clearance 70 mL/min (70-130); Calcium 7.9 mg/dL (7.8-10.44); Carbon Dioxide 23 mmol/L (23-31); Chloride 119 mmol/L (98-107); Estimated GFR-MDRD 80; Magnesium 2.2 mg/dL (1.6-2.6); Phosphorus 2.1 mg/dL (2.3-4.7)
[2017-01-05 05:24] LABS: Band 10 % (5-11); Hematocrit 26.2 % (42.0-52.0); Macrocytosis SLIGHT = 6-15 cells (100X) (0-5/hpf); Metamyelocyte 1 % (0-0); Neutrophil 73 % (42-75); Polychromasia SLIGHT = 2-3 cells (100X) (0-2/hpf); Reactive Lymphocytes 1 % (0-10); Red Blood Cell (RBC) Count 2.66 mill/uL (4.70-6.10); White Blood Cell (WBC) Count 15.7 thou/uL (4.8-10.8)
[2017-01-05 06:25] VITALS: BP 120/70
[2017-01-05] MEDS: Levothyroxine Sodium 100 MCG VIAL IVP SCH (06:53)
[2017-01-05] MEDS: Hydrocortisone Sod Succ/PF 100 mg/2 ml Vial IVP SCH (06:53)
[2017-01-05] MEDS: Potassium Chloride 40 MEQ in Premix Bag 1 BAG IVPB PRN (06:53)
[2017-01-05] MEDS: metroNIDAZOLE 500 MG in Premix Bag 1 BAG IVPB SCH (06:53)
[2017-01-05] MEDS: HumaLOG 300 UNITS/3 ML VIAL SC PRN (06:54)
[2017-01-05 07:15] LABS: Oxyhemoglobin 92.4 % (94.0-97.0); Sodium 149 mmol/L (135-148)
[2017-01-05 07:20] LABS: Mechanical Tidal Volume 500 ml; Mode SIMV.PSV; Modified Allen's Test POSITIVE; Pressure Support 10 cmH2O; Vent YES
[2017-01-05] MEDS: Metoclopramide HCl 10 MG/2 ML VIAL IVP SCH (07:33)
--- NOTE | 2017-01-05 07:59 | RAD ---
PORTABLE CHEST 1 VIEW: DATE: 01/05/17. TIME: 4:22 a.m. HISTORY: Respiratory failure. FINDINGS/IMPRESSION: There is poor visualization of the right hemidiaphragm compared to the previous study. The remainde r of the exam is otherwise stable. POS: [facility]
[2017-01-05 08:14] VITALS: TEMP 98.3
--- NOTE | 2017-01-05 08:26 | PRG ---
DATE OF SERVICE: 01/05/2017 Thirty-five minutes critical care time. Mr. Esquivel continues to struggle. He has respiratory rate was high all night long. His abdomen c ontinues to be distended. His daughter is at the bedside today and we talked in detail. PHYSICAL EXAMINATION: VITAL SIGNS: Temperature is 97, pulse 117, blood pressure 108/65, 24-hour intake 305, output 1790. HEENT: Unremarkable except for the endotracheal tube and nasogastric tube in place. NECK: No JVD. He has a right IJ line in place. CARDIAC: S1 and S2 regular. LUNGS: Clear. ABDOMEN: Distended, tympanic. EXTREMITIES: Edematous. LABORATORY DATA: White blood cell count 15.7, hematocrit 26.2, platelet count 86, pH 7.42, pCO2 of 31, pO2 63 on SIMV rate 10, tidal volume 500, PEEP 5, pressure support 10, FiO2 23%. Sodium 147, po tassium 3.0, chloride 119, CO2 23, BUN 53, creatinine 0.9, glucose 227. His chest x-ray shows bilateral infiltrates in the bases, probably consistent with some pleural effu sions. The ET tube and central line are in good position. ASSESSMENT: 1. Small-bowel obstruction with no evidence of improvement. 2. Advanced age. 3. Respiratory failure requiring mechanical ventilation. 4. Electrolyte imbalance. RECOMMENDATIONS: I spoke with the daughter at length. She had initially not wanted too much to be done, especially if the patient was not going show any signs of improvement. I think we are at the point to where the patient has been given a reasonable chance for improvement, but is not showing an y signs of such. I have suggested that we go ahead and withdraw support and focus on comfort care. The daughter is in agreement. The patient is DNR. TPN will be stopped.
[2017-01-05] MEDS ORDERED: Digoxin 0.5 MG/2 ML AMP SLOW IVP SCH (09:00)
[2017-01-05] MEDS ORDERED: Enoxaparin Sodium 40 MG/0.4 ML SYRINGE SC SCH (09:00)
--- NOTE | 2017-01-05 12:55 | PDOC.EVN ---
Event Note - Event Note Event Note: Nursing called to report that Pt has .Pronounced by RN. he was made comfort care earlier today and was terminally extubated after discussion between PCCM MD and daughter.Please refer to summary for details.
--- NOTE | 2017-01-05 13:24 | PQF ---
[employer] Human Resources Training Manager Crystal Reports Winform ViewerWESOLICCHELO Oleary CURTIS [id number] [facility]03 [id number] CLINICAL DOCUMENTATION IMPROVEMENT CLARIFICATION FORM: ICD-10 Updated PLEASE DO AN ADDENDUM TO THE PROGRESS NOTE WITH ANY DOCUMENTATION UPDATES OR ADDITIONS AND CARRY THROUGH TO DC SUMMARY. THANK YOU. Date: 01-02-17 ATTN: DR. J CARLOS CHOWDHURY / DR. GREEN Please exercise your independent, professional judgment in responding to the clarification form. Clinical indicators are provided on the bottom of this form for your review Please check appropriate box(s): [ ] Protein Calorie Malnutrition: [ ] Mild [ ] Moderate [ x] Severe [ ] Other Malnutrition (please specify) __ [ ] Underweight without malnutrition [ ] Cachexia [ ] Other diagnosis [ ] Unable to determine In addition, please specify: Present on Admission (POA): [ X ] Yes [ ] No [ ] Unable to determine CLINICAL INDICATORS - SIGNS / SYMPTOMS / LABS 12-30 NURSING ASSESSMENT: BMI 22.2 CONSULT GI: CACHECTIC; ILL-APPEARING 12-31 PN ATTENDING: UNSPECFIED PROTEIN-CALORIE MALNUTRITON - PN PULM: SEVERE MUSCLE WASTING RISK FACTORS H&P: USP PATIENT - 86 YEARS OLD - DEMENTIA ABD PAIN; SBO X-RAY - POSSIBLE PERFORATED VISCUS WOUNDCARE CONSULT: ADVANCED AGE/ EDEMA/IMMOBILITY/VASCULAR COMPROMISE LLE NON-PRESSURE ULCER - PARTIAL THICKNESS TREATMENT: NUTRITION CONSULT: ABD PAIN/ VOMITING/POOR SURGICAL CANDIDATE RECOMMEND: IF FAMILY DESIRES INVASIVE TREATMENT RECOMMEND STARTING TPN: D30 1000ML, 10% AA 1000 ML; MONITOR BOWEL FUNCTION HIGH PRIORITY F/U THANK YOU, ОЛЬГА (This form is maintained as a part of the permanent medical record) 2014 [employer]. All Rights Reserved Ольга Son RN, BS [email or web address] Cell [facility]
--- NOTE | 2017-01-05 13:36 | PQF ---
CHELO ODOM RICHA MD [id number] U-A03 [id number] CLINICAL DOCUMENTATION IMPROVEMENT CLARIFICATION FORM: ICD-10 Updated PLEASE DO AN ADDENDUM TO THE PROGRESS NOTE WITH ANY DOCUMENTATION UPDATES OR ADDITIONS AND CARRY THROUGH TO DC SUMMARY. THANK YOU. DATE: 01-05-17 ATTN: DR. GREEN Please exercise your independent, professional judgment in responding to the clarification form. Clinical indicators are provided on the bottom of this form for your review Please check appropriate box(s): [ x] Shock (please further specify type): [ x] Septic and Cardiogenic [ ] Cardiogenic [ ] Septic [ ] Other diagnosis [ ] Unable to determine In addition, please specify: Present on Admission (POA): [ ] Yes [ ] No [ ] Unable to determine For continuity of documentation, please document condition throughout progress notes and discharge summary. Thank You. CLINICAL INDICATORS - SIGNS / SYMPTOMS / LABS H&P: HYPOTENSIVE BRADYCARDIA LOST PULSE IN ER - CPR DONE FOR 2 MINUTES SBO LACTIC ACIDOSIS - 7.9 12-31 ATTENDING PN: SEPSIS - SUSPECTED RISK FACTORS H&P: Sepsis SBO LOST PULSE IN ER - CPR DONE FOR 2 MINUTES TREATMENTS: CPOE: ICU vasopressors (LEVOPHED) Maximizing oxygenation (ON VENT) IV ABX - FLAGYL THANK YOU, ОЛЬГА (This form is maintained as a part of the permanent medical record) 2015 [employer]. All Rights Reserved Ольга Son RN, BS [email or web address] Cell [facility]
--- NOTE | 2017-01-05 22:31 | DS ---
DATE OF ADMISSION: 12/30/2016 DATE OF : 01/05/2017 TIME OF : 09:41 in the morning. DIAGNOSES AT THE TIME OF : Include; 1. Acute cardiorespiratory failure. 2. Sepsis with septic shock. 3. Small-bowel obstruction. 4. Severe malnutrition. 5. Advanced age. 6. Lactic acidosis, either secondary to septic versus cardiogenic shock or both. 7. Chronic anemia. 8. Chronic atrial fibrillation with rapid ventricular response. 9. Chronic hypothyroidism. PROCEDURES DONE IN THE HOSPITAL: Include; 1. Endotracheal intubation. 2. Placement of a nasogastric tube by Gastroenterology. 3. Multiple abdominal and chest x-rays. CONSULTATIONS: Include; 1. Pulmonary Critical Care, Julian Sandoval M.D. 2. Gastroenterology, Claudio Palomares M.D. PRIMARY CARE PHYSICIAN: Kurt Carvajal M.D. ADMISSION HISTORY: Mr. Esquivel was an 86-year-old male with past medical history of atri al fibrillation, pulmonary hypertension, BPH, depression and venous insufficiency who was [facility] to [facility] of abdominal pain. There was some concern of perforated viscus and small-bowel obstruction in the emergency room. He received some pain medicati ons in the outside ER and became apneic and was transferred to our facility. In our emergency room, x-ray was repeated, which showed small-bowel obstruction and the patient became hypotensive. Gener al Surgery team was consulted in the emergency room and recommended no surgical intervention. Event ually, the patient became more hypotensive, bradycardic and lost his pulse and CPR was initiated. Isabella damico was eventually stabilized with return of spontaneous circulation and was admitted to CCU after he was intubated and was started on pressors. Upon presentation, his white cell count was 5.8, hemoglo bin 9 and platelet count of 260. Lactic acid was elevated to 5.3. BNP was 134 and creatinine 1.19. Please see admission history and physical for further details. HOSPITAL COURSE: The patient was kept in ICU and Dr. Sandoval evaluated the patient. Throughout his hospitalization, he was not able to be weaned off of the ventilator and required pressors and suppo rtive care. Trial to obtain a nasogastric tube by the nursing staff in the emergency room staff flores led, so Gastroenterology was consulted. Dr. Palomares saw the patient and he was able to pass a nasogast baudilio tube through endoscope. Intermittent wall suction was applied to the nasogastric tube without a ny significant return. The patient also had a central line placed in. He was started on broad-spectrum IV antibiotics and IV fluids and was continued on pressors. Unfort unately, he continued to decline despite maximum supportive care. At this time, family was consulte d with regards to the poor prognosis. Eventually, his daughter came to the hospital and after discu ssion with Pulmonary Critical Care; the decision was made to stop the aggressive measures and make h im comfort care. After this, he was terminally extubated and he peacefully earlier this morning. There was also concerns for bowels and persistent small-bowel obstruction, which was not amenable to surgical intervention. The patient also remained tachycardic throughout the hospit alization with atrial fibrillation. He was started on IV digoxin without any benefit. He was also receiving IV levothyroxine and IV Solu-Cortef while admitted. Please see Hospitalist progress note and the [facility] for further detail including day-to-day summar y. The patient was pronounced by the RN of Critical Care Unit.
--- NOTE | 2017-01-07 13:17 | EKG ---
Test Reason : Blood Pressure : / mmHG Vent. Rate : 119 BPM Atrial Rate : 156 BPM P-R Int : 000 ms QRS Dur : 078 ms QT Int : 344 ms P-R-T Axes : 000 023 030 degrees QTc Int : 483 ms Atrial fibrillation with rapid ventricular response with premature ventricular or aberrantly conduct ed complexes Low voltage QRS Nonspecific ST and T wave abnormality , probably digitalis effect Abnormal ECG Confirmed by CAMILA RICE D.O. ([id number]), copy editor ROSS TRIVEDI ([id number]) on 01/07/2017 1:16:39 PM Referred By: Confirmed By:CAMILA RICE D.O.
== END 2017-01-05 09:38 | disposition expired | DRG 870 ==
LOC: ERS 19:37 → CCU 21:30
PROVIDERS: ADMIT Internal Medicine; ATTEND Internal Medicine
PROC: 5A1955Z Respiratory Ventilation, Greater than 96 Consecutive Hours (ICD-10-PCS; principal; 2016-12-30)
PROC: 0BH17EZ Insertion of Endotracheal Airway into Trachea, Via Natural or Artificial Opening (ICD-10-PCS; 2016-12-30)
PROC: 06HM33Z Insertion of Infusion Device into Right Femoral Vein, Percutaneous Approach (ICD-10-PCS; 2016-12-30)
PROC: 0D9680Z Drainage of Stomach with Drainage Device, Via Natural or Artificial Opening Endoscopic (ICD-10-PCS; 2017-01-01)
PROC: 30233N1 Transfusion of Nonautologous Red Blood Cells into Peripheral Vein, Percutaneous Approach (ICD-10-PCS; 2017-01-01)
PROC: 3E0336Z Introduction of Nutritional Substance into Peripheral Vein, Percutaneous Approach (ICD-10-PCS; 2017-01-02)
PROC: 02HV33Z Insertion of Infusion Device into Superior Vena Cava, Percutaneous Approach (ICD-10-PCS; 2017-01-02)
PROC: B548ZZA Ultrasonography of Superior Vena Cava, Guidance (ICD-10-PCS; 2017-01-02)
DX: A41.9 Sepsis, unspecified organism (principal); J96.00 Acute respiratory failure, unspecified whether with hypoxia or hypercapnia; I46.8 Cardiac arrest due to other underlying condition; K63.1 Perforation of intestine (nontraumatic); E43 Unspecified severe protein-calorie malnutrition; R57.0 Cardiogenic shock; R65.21 Severe sepsis with septic shock; E87.2 Acidosis; K56.699 Other intestinal obstruction unspecified as to partial versus complete obstruction; R64 Cachexia; F03.90 Unspecified dementia, unspecified severity, without behavioral disturbance, psychotic disturbance, mood disturbance, and anxiety; I27.20 Pulmonary hypertension, unspecified; E87.1 Hypo-osmolality and hyponatremia; T40.2X5A Adverse effect of other opioids, initial encounter; E87.5 Hyperkalemia; Z51.5 Encounter for palliative care; Z66 Do not resuscitate; I48.2 Chronic atrial fibrillation; D64.9 Anemia, unspecified; Z68.22 Body mass index [BMI] 22.0-22.9, adult; E03.9 Hypothyroidism, unspecified; I10 Essential (primary) hypertension; E86.1 Hypovolemia; N40.0 Benign prostatic hyperplasia without lower urinary tract symptoms; F32.9 Major depressive disorder, single episode, unspecified; K63.89 Other specified diseases of intestine; N28.9 Disorder of kidney and ureter, unspecified
CPT/HCPCS: 31500; 36415; 36416; 36430; 36556; 51702; 71010; 74000; 74020; 80048; 80061; 80069; 81003; 81015; 82805; 83605; 83735; 84100; 84134; 84439; 84443; 84481; 85025; 86850; 86900; 86901; 93005; 94002; 94003; 96365; 96366; 96368; 96375; 96376; 99292; A4216; C9113; J0131; J0171; J0461; J1160; J1650; J1720; J2185; J2704; J2765; J3010; J3370; J3411; J3475; J3480; J7050; P9016